=== PATIENT | female | born 1970 | race Caucasian/White ===

== ENCOUNTER 2022-12-18 07:35 | Outpatient (CLI) | payer BC, SELFPAY | END 2022-12-18 07:36 | disposition home or self-care (01) | PROVIDERS: PCP Internal Medicine; Referring Provider Internal Medicine; Visit Provider Internal Medicine | DX: Z00.00 Encounter for general adult medical examination without abnormal findings (principal); E03.9 Hypothyroidism, unspecified; L71.9 Rosacea, unspecified; E66.9 Obesity, unspecified; L50.1 Idiopathic urticaria; K21.9 Gastro-esophageal reflux disease without esophagitis | CPT/HCPCS: 80061; 82306; 82728; 82947; 83520; 83735; 84443; 86336 ==

== ENCOUNTER 2023-01-26 11:27 | Outpatient (CLI) | payer BC, SELFPAY ==
--- NOTE | 2023-01-26 11:30 | CRLHL7_ITS ---
For Patients: As a result of the Century Cures Act, medical imaging exams and procedure reports are released immediately into your electronic medical record. You may view this report before your referring provider. If you have questions, please contact your health care provider. BILATERAL SCREENING MAMMOGRAM WITH COMPUTER-AIDED DETECTION AND TOMOSYNTHESIS TECHNIQUE: CC and MLO views were obtained. These mammographic images have been obtained using full-field digital technique. These mammographic images were interpreted with the benefit of computer-aided detection. Breast Tomosynthesis was used in this interpretation. COMPARISON FILM: 10/14/21, 06/06/20, 01/03/19. FINDINGS: The breasts are almost entirely fatty IMPRESSION: There is no radiographic evidence for malignancy. ASSESSMENT: BI-RADS Category 1: Negative RECOMMENDATION: Routine screening mammogram in 1 year. A lay language report of this examination will be provided to the patient. Rahul Hall M.D. Diagnostic Radiologist [email or web address] LEONIE/Dictated by: Rahul Hall MD @ 01/27/2023 9:00:00 AM (Electronically Signed)
== END 2023-01-26 11:28 | disposition home or self-care (01) ==
LOC: MAMMO 11:28
PROVIDERS: PCP Internal Medicine; Visit Provider Internal Medicine
DX: Z12.31 Encounter for screening mammogram for malignant neoplasm of breast (principal)
CPT/HCPCS: 77063; 77067

== ENCOUNTER 2024-02-05 07:39 | Outpatient (CLI) | payer BC, SELFPAY ==
--- OUTSIDE RECORDS SUMMARY | 2024-02-23 08:18 | XMS_ITS | Encounter Summary ---
Author Organization [employer] Address [address], [place] [address] Care Team Providers Care Transformer Mechanic Name Role Phone Unavailable Primary Care Provider Unavailabl e Reason for Visit * Reason Comments QUESTIONS, GENERAL Encounter Details Date Type Department Care Team (Late st Contact Info) Description 07/24/2023 Telephone [facility] [place] [id number] [place] [phone] [place] [address] [place], [place] [phone] QUESTIONS, GENERAL Social History Tobacco Use Types [...]
--- OUTSIDE RECORDS SUMMARY | 2024-02-23 08:18 | XMS_ITS | Clinical Summary ---
Author Organization [facility] Address [address] [place] [address] Care Team Providers Care Associate Publisher Name Role Phone Unavailable Primary Care Provider Unavailabl e Source Comments You are receiving this document as you are listed as the primary care provider,follow-up provider, or the patient has been referred to you for consultation.This is in compliance with the Medicare and[facility] EHR Incentive Program,which states Providers who transition their patient to another setting of careor provider of care or refers their patient to another provider of care shouldprovide summary care record for each transition of care or referral. [employer]) Allergies No known active allergies Medications Medication [...] (19+ yrs) 08/19/2018,09/22/2012,02/26 Influenza IIV4 (Quadrivalent) 0.5mL (61676) 05/22,08/31/2017 Influenza, Unspecified Formulation 08/04/2016,,07/25/2014 Td 03/26/2005 Tdap 06/05/2009 Social History Tobacco Use Types Packs/Day Years Used Date Smoking Tobacco: Never Smokeless Tobacco: Never Sex and Gender Information Value Date Recorded Sex Assigned at Not on file Gender Identity Not on file Sexual Orientation Not on file Last Filed Vital Signs Vital Sign Reading Time Taken Comments Blood Pressure 128/84 07/28/2019 1:19 PM MINERALOGY PROFESSOR Pulse 90 07/28/2019 1:19 PM MINERALOGY PROFESSOR Temperature 36.3 ??C (97.3 ??F) 05/15/2023 4:37 [...] on patient's age to complete this topic [id number] [facility] [place] [address] Verónica Pleitez Personal/Family Self 1970 [id number] [facility] [place] [address]
--- OUTSIDE RECORDS SUMMARY | 2024-02-23 08:19 | XMS_ITS | Referral Summary ---
Author Organization [facility] Address [address] [place] [address] Care Team Providers Care House Detective Name Role Phone Elsewhere, Pcp Primary Care Provider Unavailabl e Source Comments Patient records contain information from all sites at [facility]. For routine questions regarding patient records, call [phone] during business hours, M-F 8:00 AM - 5:00 PM Central Time. Record requests for emergency care only can be directed to [phone] at any time.[facility] Encounters Date Type Department Care Team Description 01/18/2024 12:45 PM CDT Office Visit Department of Dermatology in [address] [phone] Karie Goodwin M.D. Nevi Multiple (Primary Dx); [...] often do you attend chur ch or samaritan services? More than 4 times per year 06/16/2022 Do you belong to any clubs o r organizations such as jew groups, unions, fraternal or athletic groups, or [...] and heating? Not hard at all 06/16/2022 [facility] [place] of Occupat ional Health - Occupational Stress [...] place to sleep or slept in a fpc (including now)? No 06/16/2022 Nutrition Answer Date [...] Comments Blood Pressure 121/80 10/10/2019 8:28 AM JUNIOR SYSTEMS ENGINEER Pulse 69 10/10/2019 8:28 AM JUNIOR SYSTEMS ENGINEER Temperature 36.9 ??C (98.4 ??F) 08/15/2019 9:54 AM CS T Respiratory Rate 14 08/01/2016 11:5 6 AM JUNIOR SYSTEMS ENGINEER Oxygen Saturation - - Inhaled Oxygen Concentration - - Weight 90.1 kg (198 lb 10.2 oz) 10/10/2019 8:28 AM JUNIOR SYSTEMS ENGINEER Height 165.5 cm (5' 5.16) 10/10/2019 8:28 AM CS T Body Mass Index 32.9 10/10/2019 8:28 AM JUNIOR SYSTEMS ENGINEER Plan of Treatment Upcoming Encounters Date Type Department Care Team (Late st Contact Info) Description 07/25/2024 8:45 AM JUNIOR SYSTEMS ENGINEER Office Visit Department of Dermatology in [address] [phone] Karie Goodwin M.D. [address] [place] [phone] Discharge Disposition: Home or Self Care Procedures Procedure Name Priority Date/Time Associated Diagnosis Comments THYROID FUNCTION CASCADE, S Routine 04/11/2019 3:46 PM CDT Pain Low Back Pain Hip Bilateral HCV RNA DETECT/QUANT Routine 12/11/2015 12:28 PM CDT HIV-1/-2 AG AND AB SCREEN Routine 12/11/2015 12:28 PM CDT from Last 3 Months or Most Recently Relevant to Health Maintenance Results * Thyroid Function Dexter (04/11/2019 3:46 PM CDT) TSH, Sensitive 0.6 0.3 - 4.2 mIU/L 04/11/2019 7:40 PM CDT Blood (Blood, Venous) 04/11/2019 3:46 PM CDT 04/11/2019 7:00 PM CDT Nasir Kidd M.D. LAB BLOOD ADD-ON Performing Organization Address City/State/[facility] de Phone Number [facility] [address] * HIV-1/-2 Ag and Ab Screen (12/11/2015 12:28 PM CDT) [facility] HIV-1/-2 Antibody Negative Negative POWERCHART Comment: Negative result does not rule out HIV infection. If acute HIV infection is suspected in a high-risk individual, submit plasma specimen for HIV-1 RNA quantification test (HIVDQ) and/or HIV-2 DNA/RNA test (FHV2Q). Test Performed by: [place] [id number] Multilith Operator: Julian Clarke II, M.D., Ph.D. Blood 12/11/2015 12:2 8 PM CDT Oli Palencia Jr., M.D. LAB MICROBIOLOG Y - BLOOD ORDERABLES Performing Organization Address [facility] de Phone Number POWERCHART * HCV RNA Detect / Quant (12/11/2015 12:28 PM CDT) [facility] HCV RNA Detect/Quant, S Undetected Undetected INTUML POWERCHART Comment: Result in log IU/mL is Undetected. ADDITIONAL INFORMATION The quantification range of this assay is 15 to 100,000,000 IU/mL (1.18 log to 8.00 log IU/mL). Testing was performed by the CINDY AmpliPrep/CINDY TaqMan HCV Test, version 2.0 ([employer] Test Performed by: [place] [address] Multilith Operator: Julian Clarke II, M.D., Ph.D. Blood 12/11/2015 12:2 8 PM CDT Oli Palencia Jr., M.D. LAB MICROBIOLOG Y - BLOOD ORDERABLES POWERCHART from Last 3 Months or Most Recently Relevant to Health Maintenance Care Teams House Detective Relationship Specialty Start Date End Date Elsewhere, Pcp PCP - General Family Medicine 08/15/19
--- OUTSIDE RECORDS SUMMARY | 2024-02-23 08:19 | XMS_ITS | Encounter Summary ---
Author Organization [facility] Address [address] [place] [address] Care Team Providers Care Agricultural Chemist Name Role Phone Elsewhere, Pcp Primary Care Provider Unavailabl e Encounter Details Date Type Department Care Team (Late st Contact Info) Description 11/10/2016 Historical Ophthalmology [facility] Oli Palencia Jr., M.D. [address] [phone] Social History Tobacco Use Types [...] Mild rosacea CDM Reports - EYEGEN Id: [id number] Status: Fnl documented in this encounter Plan of Treatment Upcoming Encounters Date Type Department Care Team (Late st Contact Info) Description 07/25/2024 8:45 AM BUSINESS INSIGHT AND ANALYTICS MANAGER Office Visit Department of Dermatology in [address] [phone] Karie Goodwin M.D. [address] [place] [phone] Discharge Disposition: Home or Self Care documented as of this encounter Visit Diagnoses Not on filedocumented in this encounter Additional Health Concerns Infection Onset Date Last Indicated Resolved Time COVID19 Pending 02/02/2020 02/02/2020 02/03/2020 3 :15 AM CDT COVID19 Pending 02/06/2020 02/06/2020 02/07/2020 5 :41 PM CDT COVID19 Pending 08/29/2020 08/29/2020 08/30/2020 1 :03 PM BUSINESS INSIGHT AND ANALYTICS MANAGER documented as of this encounter Care Teams Agricultural Chemist Relationship Specialty Start Date End Date Elsewhere, Pcp PCP - General Family Medicine 08/15/19 documented as of this encounter
--- OUTSIDE RECORDS SUMMARY | 2024-02-23 08:19 | XMS_ITS | Encounter Summary ---
Author Organization [facility] Address [address] [place] [address] Care Team Providers Care Health Care Marketing Specialist Name Role Phone Skylar Esparza MD Primary Care Provider [phone] Encounter Details Date Type Department Care Team ([facility] st Contact Info) Description 12/11/2023 Transcribe Orders [...] on filedocumented in this encounter Care Teams Health Care Marketing Specialist Relationship Specialty Start Date End Date Skylar Esparza MD [address] [address] PCP - General Internal Medicine 10/09/20 documented as of this encounter
--- OUTSIDE RECORDS SUMMARY | 2024-02-23 08:19 | XMS_ITS | Encounter Summary ---
Author Organization [facility] Address [address] [place] [address] Care Team Providers Care Guest Service Supervisor Name Role Phone Elsewhere, Pcp Primary Care Provider Unavailabl e Reason for Referral * Outpatient (Routine) - Authorized Specialty Diagnoses / Procedures Referred By Geneva ventura Referred To Contact Dermatology Karie Goodwin M.D. [address] [place] [address] [facility] Referral ID Status Reason Start Date Expiration Date V isits Requested Visits Authorized [id number] Authorized 01/18/2024 07/19/2025 1 1 Scheduling Instructions Recheck scalp pruritus, rosacea and a few nevi in 6 months Reason for Visit * Reason Comments Skin Check * Appointment Request (Routine) - Closed Specialty Diagnoses / Procedures Referred By Contac t Referred To Contact Dermatology Referral ID Status Reason Start Date Expiration Date Visits Re quested Visits Authorized [id number] Closed 09/10/2023 09/09/2024 1 1 Encounter Details Date Type Department Care Team (Late st Contact Info) Description 01/18/2024 12:45 PM CDT Office Visit Department of Dermatology in [address] [phone] Karie Goodwin M.D. [address] [place] [phone] Nevi Multiple (Primary Dx); Keratosis Seborrheic; Pruritus [...] often do you attend chur ch or restorationism services? More than 4 times per year 06/16/2022 Do you belong to any clubs o r organizations such as adventism groups, unions, fraternal or athletic groups, or [...] and heating? Not hard at all 06/16/2022 [facility] [place] of Occupat ional Health - Occupational Stress [...] place to sleep or slept in a penitentiary (including now)? No 06/16/2022 Nutrition Answer Date [...] extremities. My scribe (Rhoda) served as a skeet operator for the entirety of the exam. Examination [...] st Contact Info) Description 07/25/2024 8:45 AM DIAGNOSTICS TECH Office Visit Department of Dermatology in [address] [phone] Karie Goodwin M.D. [address] [place] [phone] Discharge Disposition: Home or Self Care Scheduled Referrals Name Type Priority Associated Diagnoses Order Schedule Dermatology office visit (clinic) Outpatient Referral Routine Expected: 07/19/2024 (Approximate), Expires: 04/18/2025 documented as of this encounter Visit Diagnoses Diagnosis Nevi Multiple- Primary Keratosis Seborrheic Pruritus Scalp Rosacea documented in this encounter Care Teams Guest Service Supervisor Relationship Specialty Start Date End Date Elsewhere, Pcp PCP - General Family Medicine 08/15/19 documented as of this encounter
--- OUTSIDE RECORDS SUMMARY | 2024-02-23 08:19 | XMS_ITS | Referral Summary ---
Author Organization [facility] Address [address] [place] [address] Care Team Providers Care Break Off Worker Name Role Phone Skylar Esparza MD Primary [...] of Treatment Not on file Care Teams Break Off Worker Relationship Specialty Start Date End Date Skylar Esparza MD [facility] [address] [place] [address] PCP - General Internal Medicine 10/09/20
--- OUTSIDE RECORDS SUMMARY | 2024-02-23 08:19 | XMS_ITS ---
Author Organization [facility] Address [address] [place] [address] Care Team Providers Care Linux Programmer Name Role Phone Unavailable Unavailable Unavailable Surgery Details Not on file Complications Check Surgery Details section. Procedure Estimated Blood Loss Check Surgery Details section. Procedure Findings Check Surgery Details section. Procedure Specimens Taken Check Surgery Details section.
--- OUTSIDE RECORDS SUMMARY | 2024-02-23 08:19 | XMS_ITS | Clinical Summary ---
Author Organization [facility] Address [address] [place] [address] Care Team Providers Care Manager Financial Reporting Name Role Phone Elsewhere, Pcp Primary Care Provider Unavailabl e Source Comments Patient records contain information from all sites at [facility]. For routine questions regarding patient records, call [phone] during business hours, M-F 8:00 AM - 5:00 PM Central Time. Record requests for emergency care only can be directed to [phone] at any time.[facility] Allergies Active Allergy Reactions Criticality Noted Date [...] CDT Office Visit Department of Dermatology in [address] [phone] Karie Goodwin M.D. Nevi Multiple [...] How often do you attend chur or latter-day services? More than 4 times per year 06/16/2022 Do you belong to any clubs o r organizations such as orthodoxy groups, unions, fraternal or athletic groups, or [...] and heating? Not hard at all 06/16/2022 [facility] - Occupational Stress Questionnaire Answer Date [...] place to sleep or slept in a residential (including now)? No 06/16/2022 Nutrition Answer Date [...] Comments Blood Pressure 121/80 10/10/2019 8:28 AM GRAPE GROWER Pulse 69 10/10/2019 8:28 AM GRAPE GROWER Temperature 36.9 ??C (98.4 ??F) 08/15/2019 9:54 AM CS T Respiratory Rate 14 08/01/2016 11:5 6 AM GRAPE GROWER Oxygen Saturation - - Inhaled Oxygen Concentration - - Weight 90.1 kg (198 lb 10.2 oz) 10/10/2019 8:28 AM GRAPE GROWER Height 165.5 cm (5' 5.16) 10/10/2019 8:28 AM CS T Body Mass Index 32.9 10/10/2019 8:28 AM GRAPE GROWER Plan of Treatment Upcoming Encounters Date Type Department Care Team (Late st Contact Info) Description 07/25/2024 8:45 AM GRAPE GROWER Office Visit Department of Dermatology in [address] [phone] Karie Goodwin M.D. [address] [place] [phone] Discharge Disposition: Home or Self Care Health [...] to Health Maintenance Results * Thyroid Function [place] (04/11/2019 3:46 PM CDT) TSH, Sensitive 0.6 0.3 - 4.2 mIU/L 04/11/2019 7:40 PM CDT Blood (Blood, Venous) 04/11/2019 3:46 PM CDT 04/11/2019 7:00 PM CDT Nasir Kidd M.D. LAB BLOOD ADD-ON [facility] [address] [place] [address], [facility] * HIV-1/-2 Ag and Ab Screen (12/11/2015 12:28 PM CDT) [facility] HIV-1/-2 Antibody Negative Negative POWERCHART Comment: Negative result does not rule out HIV infection. If acute HIV infection is suspected in a high-risk individual, submit plasma specimen for HIV-1 RNA quantification test (HIVDQ) and/or HIV-2 DNA/RNA test (FHV2Q). Test Performed by: [place] [address] Watershed Tender: Julian Clarke II, M.D., Ph.D. Blood 12/11/2015 12:2 8 PM CDT Oli Palencia Jr., M.D. LAB MICROBIOLOG Y - BLOOD ORDERABLES Performing Organization Address [facility] de Phone Number POWERCHART * HCV RNA Detect / Quant (12/11/2015 12:28 PM CDT) [facility] HCV RNA Detect/Quant, S Undetected Undetected INTUML POWERCHART Comment: Result in log IU/mL is Undetected. ADDITIONAL INFORMATION The quantification range of this assay is 15 to 100,000,000 IU/mL (1.18 log to 8.00 log IU/mL). Testing was performed by the CINDY AmpliPrep/CINDY TaqMan HCV Test, version 2.0 ([employer] Test Performed by: [place] [id number] Watershed Tender: Julian Clarke II, M.D., Ph.D. Blood 12/11/2015 12:2 8 PM CDT Oli Palencia Jr., M.D. LAB MICROBIOLOG Y - BLOOD ORDERABLES Performing Organization Address City/[facility] de Phone Number POWERCHART from Last 3 Months or Most Recently Relevant to Health Maintenance Care Teams Manager Financial Reporting Relationship Specialty Start Date End Date Elsewhere, Pcp PCP - General Family Medicine 08/15/19
--- OUTSIDE RECORDS SUMMARY | 2024-02-23 08:19 | XMS_ITS | Clinical Summary ---
Author Organization [facility] Address [address] [place] [address] Care Team Providers Care Survey Instrument Operator Name Role Phone Skylar Esparza MD Primary [...] age to complete this topic Care Teams Survey Instrument Operator Relationship Specialty Start Date End Date Skylar Esparza MD [facility] [address] [place] [address] PCP - General Internal Medicine 10/09/20
--- OUTSIDE RECORDS SUMMARY | 2024-02-23 08:19 | XMS_ITS | Clinical Summary ---
Author Organization [facility] Address [place], [place] [address] Care Team Providers Care Care Trainer Name Role Phone Pcp, No Primary Care [...] Description 02/05/2024 8:40 AM CDT Office Visit [facility] [address] [place] [address] Fortunato Tapia MD Musculoskeletal Problem (RIGHT Hip/groin [...] DT Respiratory Rate 16 09/02/2022 8:01 AM CASSANDRA ARCHITECT Oxygen Saturation 100% 02/05/2024 8:48 AM CDT Inhaled Oxygen Concentration - - Weight 80 kg (176 lb 6.4 oz) 02/05/2024 8:48 AM CDT Height 165.1 cm (5' 5) 10/27/2022 8:47 AM CASSANDRA ARCHITECT Body Mass Index 29.35 10/27/2022 8:47 AM CASSANDRA ARCHITECT Plan of Treatment Health Maintenance Due Date [...] REFLEX MEASURED LDL Routine 11/07/2010 8:36 AM CASSANDRA ARCHITECT HYPOTHYROIDISM ACQUIRED UNSPEC PRELOAD SUPERVISOR THIN PREP PAP SCREEN IMAGED Routine 01/18/2008 3:26 PM CDT Screening Malignant Neoplasms Cervix XR MAMMO BILAT DIAG FFDM (IA) Timed 06/11/2006 3:07 PM CDT from Last 3 Months or Most Recently Relevant to Health Maintenance Results * COLONOSCOPY SCREENING (01/13/2022 12:00 AM CDT) Shaun Joseph MD GI PROCEDURE ORD * LIPID PANEL W REFLEX MEASURED LDL (11/07/2010 8:36 AM CASSANDRA ARCHITECT) CHOLESTEROL,TOTAL 169 110 - 199 mg/dL [facility] TRIGLYCERIDES 114 40 - 149 mg/dL [facility] HDL CHOLESTEROL 48 >40 mg/dL [facility] CHOL/HDL RATIO 3.52 <4.51 [facility] LDL CHOLESTEROL 98 <131 mg/dL [facility] PATIENT STATUS Fasting [facility] Blood specimen (specimen) BLOOD SPECIMEN / Unknown 11/07/2010 8:36 AM CASSANDRA ARCHITECT 11/07/2010 8:35 AM CASSANDRA ARCHITECT Karthik Mccann MD CHEMISTRY [facility] INTERNAL ZIP [address] [place], [place] [id number] * PRELOAD SUPERVISOR THIN PREP PAP SCREEN IMAGED (01/18/2008 3:26 PM CDT) CYTOLOGY ??CYTOPATHOLOGY REPORT ??[facility] ?? Status: Final Report ? [id number] ?? CLINICAL INFORMATION ?LMP ? : 01-11-08 ?Previous Pap Date ? : 12-11-06 ?Previous PAP Dx ? : Negative for intraepithelial lesion or ?malignancy. ?Previous [place]cadia/bx date : None ?Previous Colposcopy/Bx: None ?Hormone Usage ? : None ?Menstrual Status ?: Regular Periods ?Appearance of Cervix ??: WNL ?[place]/Bx done today ?: No ?HPV Request ? [...] 01/18/08 ?? ACCESSIONED: 01/18/08 ?? SIGNED: 01/20/08 [facility] Cervical (Cervical) 01/18/2008 3:26 PM CDT 01/18/2008 3:25 PM CDT Larisa Contreras MD PATHOLOGY/CYTOLO GY [facility] [place]NAL ZIP [address] [address] * BC DX FFD NOHEMI TARA (06/11/2006 [...] 10:21 AM 12/03/2008 1:31 PM Care Teams Care Trainer Relationship Specialty Start Date End Date Pcp, No . PCP - General 05/29/20
== END 2024-02-05 07:40 | disposition home or self-care (01) ==
LOC: NFLDREF 02-23 08:16
PROVIDERS: PCP Internal Medicine; Referring Provider Internal Medicine; Visit Provider Internal Medicine
DX: D64.9 Anemia, unspecified (principal); E03.9 Hypothyroidism, unspecified; D39.10 Neoplasm of uncertain behavior of unspecified ovary; E66.9 Obesity, unspecified
CPT/HCPCS: 80061; 80076; 82306; 82728; 82947; 83520; 83735; 84439; 84443; 86336

== ENCOUNTER 2024-02-19 12:59 | Outpatient (CLI) | payer BC, SELFPAY ==
--- NOTE | 2024-02-19 13:00 | CRLHL7_ITS ---
For Patients: As a result of the Century Cures Act, medical imaging exams and procedure reports are released immediately into your electronic medical record. You may view this report before your referring provider. If you have questions, please contact your health care provider. BILATERAL SCREENING MAMMOGRAM WITH COMPUTER-AIDED DETECTION AND TOMOSYNTHESIS TECHNIQUE: CC and MLO views were obtained. These mammographic images have been obtained using full-field digital technique. These mammographic images were interpreted with the benefit of computer-aided detection. Breast Tomosynthesis was used in this interpretation. COMPARISON FILM: 01/26/23, 08/24/22, 06/06/20. FINDINGS: There are scattered areas of fibroglandular density. IMPRESSION: There is no radiographic evidence for malignancy. ASSESSMENT: BI-RADS Category 1: Negative RECOMMENDATION: Routine screening mammogram in 1 year. A lay language report of this examination will be provided to the patient. Rahul Hall M.D. Diagnostic Radiologist [email or web address] SP/Dictated by: Rahul Hall MD @ 02/22/2024 10:42:00 AM (Electronically Signed)
--- OUTSIDE RECORDS SUMMARY | 2024-02-19 13:02 | XMS_ITS | Encounter Summary ---
Author Organization [facility] Address [address] [place] [address] Care Team Providers Care Product Communications Manager Name Role Phone Elsewhere, Pcp Primary Care Provider Unavailabl e Encounter Details Date Type Department Care Team (Late st Contact Info) Description 11/10/2016 Historical Ophthalmology [facility] Oli Palencia Jr., M.D. [address] [phone] Social History Tobacco Use Types Packs/Day Years Used Date Smoking Tobacco: Never Sex and Gender Information Value Date Recorded Sex Assigned at Female 06/16/2022 2:22 PM CDT Gender Identity Female 03/01/2018 4:06 PM CDT Sexual Orientation Straight 03/01/2018 4: 06 PM CDT documented as of this encounter Progress Notes * Oli Palencia M.D. - 11/10/2016 2:51 PM CST Eye General CHIEF COMPLAINT CE HISTORY OF PRESENT ILLNESS by the end of the day her eyes are red and goopy, wonders if she may have ocular roascea. eyes dry.rarely wears glasses, she's not used to them and gets a little dizzy with them, but she is startingto have troubles seeing up close. has a mole on her left upper eyelid she wants you to look at. IMPRESSION / REPORT / PLAN #1 Mild rosacea Dry eyes If sx don't improve, then fill the +1.25 Consider decreasing Claritin DIAGNOSIS #1 Mild rosacea CDM Reports - EYEGEN Id: [id number] Status: Fnl documented in this encounter Plan of Treatment Upcoming Encounters Date Type Department Care Team (Late st Contact Info) Description 07/25/2024 8:45 AM QUALITY ASSURANCE INTERN Office Visit Department of Dermatology in [address] [phone] Karie Goodwin M.D. [address] [place] [address] Discharge Disposition: Home or Self Care documented as of this encounter Visit Diagnoses Not on filedocumented in this encounter Additional Health Concerns Infection Onset Date Last Indicated Resolved Time COVID19 Pending 02/02/2020 02/02/2020 02/03/2020 3 :15 AM CDT COVID19 Pending 02/06/2020 02/06/2020 02/07/2020 5 :41 PM CDT COVID19 Pending 08/29/2020 08/29/2020 08/30/2020 1 :03 PM QUALITY ASSURANCE INTERN documented as of this encounter Care Teams Product Communications Manager Relationship Specialty Start Date End Date Elsewhere, Pcp PCP - General Family Medicine 08/15/19 documented as of this encounter
--- OUTSIDE RECORDS SUMMARY | 2024-02-19 13:02 | XMS_ITS | Referral Summary ---
Author Organization [facility] Address [address] [place] [address] Care Team Providers Care Candlemaker Name Role Phone Elsewhere, Pcp Primary Care Provider Unavailabl e Source Comments Patient records contain information from all sites at [facility]. For routine questions regarding patient records, call [phone] during business hours, M-F 8:00 AM - 5:00 PM Central Time. Record requests for emergency care only can be directed to [phone] at any time.[facility] Encounters Date Type Department Care Team Description 01/18/2024 12:45 PM CDT Office Visit Department of Dermatology in [address] [phone] Karie Goodwin M.D. Nevi Multiple (Primary Dx); Keratosis Seborrheic; Pruritus Scalp; Rosacea Discharge Disposition: Home or Self Care from Last 3 Months Allergies Active Allergy Reactions Criticality Noted Date Comments Adhesive Tape-Silicones Rash Medium 12/01/2008 Dye Rash Medium 06/23/2022 Paraphenylene diamine found in hair dye Formaldehyde Rash Low 07/30/2020 Nickel Itching 06/16/2022 Red itchy ears Suture (Absorbable) Other (see comments) 2015 Vicryl sutures Medications Medication Sig Dispensed Refills Start Date End Date Status clonazePAM (KlonoPIN) 0.5 mg tablet Take 1 tablet by mouth at bedtime as needed. sleep 08/31/2012 Active pantoprazole (PROTONIX) 40 mg EC tablet Take 1 tablet by mouth daily. 40 mg one tab PO QD 03/16/2014 Active levothyroxine (SYNTHROID, LEVOTHROID) 125 mcg tablet Take 1 tablet by mouth daily. 125 mcg tablet Thursday & Thursday 112 mcg tablet Thursday-Thursday03/03/2012 Active SYNTHROID 112 mcg tablet Take 112 mcg by mouth as directed. Takes Thursday thru Thursday 3 09/06/2018 Active metroNIDAZOLE (METROLOTION) 0.75 % lotion Apply 1 application topically 2 (two) times a day. 60 mL 3 07/21/2019 Active EPINEPHrine (EPIPEN) 0.3 mg/0.3 mL injection syringe Inject 0.3 mL (0.3 mg total) intramuscularly as needed (anaphylaxis). 1 kit 3 08/15/2019 Active cetirizine (ZyrTEC) 10 mg tablet Take 1 tablet (10 mg total) by mouth at bedtime 90 tablet 09/17/2020 Active carboxymethylcell ulose (REFRESH TEARS) 0.5 % ophthalmic solution 1 drop as needed for dry eyes. Taking off and on Active Ventolin HFA 90 mcg/actuation inhaler 06/20/2022 Active metroNIDAZOLE (METROLOTION) 0.75 % lotion Apply to involved areas on face 1 to 2 times a day as needed. 60 mL 2 01/18/2024 Active fluocinonide (LIDEX) 0.05 % external solution Apply sparingly to involved areas on scalp 1-2 times daily for 1 week at a time as needed. 60 mL 2 01/18/2024 Active Active Problems Problem Noted Date Diagnosed Date Pain Joint 05/02/2019 Pain Low Back Unspecified 03/01/2018 Pain Neck 03/01/2018 Spondylosis Cervical Without Myelopathy 03/01/20 18 Immunizations Name Administration Dates Next Due HepA Adult 09/22/2012,02/27/2012 Influenza, Unspecified 08/04/2016,06/25/2015,12/2013,06/08/2013 Tdap 06/05/2009 Social History Tobacco Use Types Packs/Day Years Used Date Smoking Tobacco: Never Smokeless Tobacco: Never Tobacco Cessation:Counseling Given: Not Answered Alcohol Use Standard Drinks/Week Comments Yes 3 (1 standard drink = 0.6 oz pur e alcohol) Humiliation, Afraid, Rape, and Kick questionnair e Answer Date Recorded Within the last year, have y ou been afraid of your partner or ex-partner? No 06/16/2022 Within the last year, have y ou been humiliated or emotionally abused in other ways by your partner or ex-partner? No Within the last year, have y ou been kicked, hit, slapped, or otherwise physically hurt by your partner or ex-partner? No 06/16/2022 Within the last year, have y ou been raped or forced to have any kind of sexual activity by your partner or ex-partner? No 06/16/2022 Social Connection and Isolat ion Panel [NHANES] Answer Date Recorded In a typical week, how many times do you talk on the phone with family, friends, or neighbors? More than three times a week 06/16/2022 How often do you get togethe r with friends or relatives? Once a week 06/16/2022 How often do you attend chur ch or islam services? More than 4 times per year 06/16/2022 Do you belong to any clubs o r organizations such as rastafarian groups, unions, fraternal or athletic groups, or school groups? Yes 06/16/2022 How often do you attend meet ings of the clubs or organizations you belong to? More than 4 times per year 06/16/2022 Are you , , di vorced, , never , or living with a partner? 06/16/2022 AUDIT-C Answer Date Recorded Q1: How often do you have a drink containing alc ohol? 2-4 times a month 06/16/2022 Q2: How many drinks containi ng alcohol do you have on a typical day when you are drinking? 1 or 2 06/16/2022 Q3: How often do you have si x or more drinks on one occasion? Never 06/16/2022 Overall Financial Resource Strain (CARDIA) Answe r Date Recorded How hard is it for you to pa y for the very basics like food, housing, medical care, and heating? Not hard at all 06/16/2022 [facility] of Occupat ional Health - Occupational Stress Questionnaire Answer Date Recorded Do you feel stress - tense, restless, nervous, or anxious, or unable to sleep at night because your mind is troubled all the time - these days? Only a little 06/16/2022 Exercise Vital Sign Answer Date Recorde d On average, how many days pe r week do you engage in moderate to strenuous exercise (like a brisk walk)? 6 days 06/16/2022 On average, how many minutes do you engage in exercise at this level? 20 min 06/16/2022 Hunger Vital Sign Answer Date Recorded Within the past 12 months, y ou worried that your food would run out before you got the money to buy more. Never true 06/16/20 Within the past 12 months, t he food you bought just didn't last and you didn't have money to get more. Never true 06/16/2022 PRAPARE - Transportation Answer Date Re corded In the past 12 months, has l ack of transportation kept you from medical appointments or from getting medications? No 05/23 In the past 12 months, has l ack of transportation kept you from meetings, work, or from getting things needed for daily living? No 06/16/2022 Housing Stability Vital Sign Answer Agustín e Recorded In the last 12 months, was t here a time when you were not able to pay the mortgage or rent on time? No 06/16/2022 In the last 12 months, how many places have you lived? 1 06/16/2022 In the last 12 months, was t here a time when you did not have a steady place to sleep or slept in a alf (including now)? No 06/16/2022 Nutrition Answer Date Recorded On average, how many serving s of fruits and vegetables do you eat per day (serving size is equal to 1 cup or approximately the size of a tennis ball)? 2-3 06/16/2022 Dental Answer Date Recorded Dental: Regular Dentist Yes 06/16/20 Employment Answer Date Recorded Employment status Employed and actively working without restrictions 06/16/2022 Education Answer Date Recorded What is the highest level of school you have completed or the highest degree you have received? Professional school degree (e.g., , DDS, DVM, FERNANDA) 04/11/2019 Sex and Gender Information Value Date Recorded Sex Assigned at Female 06/16/2022 2:22 PM CDT Gender Identity Female 03/01/2018 4:06 PM CDT Sexual Orientation Straight 03/01/2018 4: 06 PM CDT Last Filed Vital Signs Vital Sign Reading Time Taken Comments Blood Pressure 121/80 10/10/2019 8:28 AM [facility] Pulse 69 10/10/2019 8:28 AM [facility] Temperature 36.9 ??C (98.4 ??F) 08/15/2019 9:54 AM CS T Respiratory Rate 14 08/01/2016 11:5 6 AM [facility] Oxygen Saturation - - Inhaled Oxygen Concentration - - Weight 90.1 kg (198 lb 10.2 oz) 10/10/2019 8:28 AM [facility] Height 165.5 cm (5' 5.16) 10/10/2019 8:28 AM CS T Body Mass Index 32.9 10/10/2019 8:28 AM [facility] Plan of Treatment Upcoming Encounters Date Type Department Care Team (Late st Contact Info) Description 07/25/2024 8:45 AM [facility] Office Visit Department of Dermatology in [address] [phone] Karie Goodwin M.D. [address] [place] [phone] Discharge Disposition: Home or Self Care Procedures Procedure Name Priority Date/Time Associated Diagnosis Comments THYROID FUNCTION CASCADE, S Routine 04/11/2019 3:46 PM CDT Pain Low Back Pain Hip Bilateral HCV RNA DETECT/QUANT Routine 12/11/2015 12:28 PM CDT HIV-1/-2 AG AND AB SCREEN Routine 12/11/2015 12:28 PM CDT from Last 3 Months or Most Recently Relevant to Health Maintenance Results * Thyroid Function [place] (04/11/2019 3:46 PM CDT) TSH, Sensitive 0.6 0.3 - 4.2 mIU/L 04/11/2019 7:40 PM CDT Blood (Blood, Venous) 04/11/2019 3:46 PM CDT 04/11/2019 7:00 PM CDT Nasir Kidd M.D. LAB BLOOD ADD-ON Performing Organization Address City/State/[facility] de Phone Number [facility] [address] * HIV-1/-2 Ag and Ab Screen (12/11/2015 12:28 PM CDT) [facility] HIV-1/-2 Antibody Negative Negative POWERCHART Comment: Negative result does not rule out HIV infection. If acute HIV infection is suspected in a high-risk individual, submit plasma specimen for HIV-1 RNA quantification test (HIVDQ) and/or HIV-2 DNA/RNA test (FHV2Q). Test Performed by: [place] [address] Hydro Sprayer Operator: Julian Clarke II, M.D., Ph.D. Blood 12/11/2015 12:2 8 PM CDT Oli Palencia Jr., M.D. LAB MICROBIOLOG Y - BLOOD ORDERABLES Performing Organization Address [facility] de Phone Number POWERCHART * HCV RNA Detect / Quant (12/11/2015 12:28 PM CDT) [facility] HCV RNA Detect/Quant, S Undetected Undetected INTUML POWERCHART Comment: Result in log IU/mL is Undetected. ADDITIONAL INFORMATION The quantification range of this assay is 15 to 100,000,000 IU/mL (1.18 log to 8.00 log IU/mL). Testing was performed by the CINDY AmpliPrep/CINDY TaqMan HCV Test, version 2.0 ([employer] Test Performed by: [place] [address] Hydro Sprayer Operator: Julian Clarke II, M.D., Ph.D. Blood 12/11/2015 12:2 8 PM CDT Oli Palencia Jr., M.D. LAB MICROBIOLOG Y - BLOOD ORDERABLES POWERCHART from Last 3 Months or Most Recently Relevant to Health Maintenance Care Teams Candlemaker Relationship Specialty Start Date End Date Elsewhere, Pcp PCP - General Family Medicine 08/15/19
--- OUTSIDE RECORDS SUMMARY | 2024-02-19 13:02 | XMS_ITS | Encounter Summary ---
Author Organization [facility] Address [address] [place] [address] Care Team Providers Care Mobile Home Set Up Person Name Role Phone Elsewhere, Pcp Primary Care Provider Unavailabl e Reason for Referral * Outpatient (Routine) - Authorized Specialty Diagnoses / Procedures Referred By Geneva ventura Referred To Contact Dermatology Karie Goodwin M.D. [address] [place] [address] [facility] Referral ID Status Reason Start Date Expiration Date V isits Requested Visits Authorized [id number] Authorized 01/18/2024 07/19/2025 1 1 Scheduling Instructions Recheck scalp pruritus, rosacea and a few nevi in 6 months Reason for Visit * Reason Comments Skin Check * Appointment Request (Routine) - Closed Specialty Diagnoses / Procedures Referred By Contac t Referred To Contact Dermatology Referral ID Status Reason Start Date Expiration Date Visits Re quested Visits Authorized [id number] Closed 09/10/2023 09/09/2024 1 1 Encounter Details Date Type Department Care Team (Late st Contact Info) Description 01/18/2024 12:45 PM CDT Office Visit Department of Dermatology in [address] [phone] Karie Goodwin M.D. [address] [place] [phone] Nevi Multiple (Primary Dx); Keratosis Seborrheic; Pruritus Scalp; Rosacea Discharge Disposition: Home or Self Care Social History Tobacco Use Types Packs/Day Years [...] often do you attend chur ch or anglican services? More than 4 times per year 06/16/2022 Do you belong to any clubs o r organizations such as presybeterian groups, unions, fraternal or athletic groups, or [...] and heating? Not hard at all 06/16/2022 [facility] of Occupat ional Health - Occupational Stress [...] place to sleep or slept in a intermediate (including now)? No 06/16/2022 Nutrition Answer Date [...] as of this encounter Progress Notes * Karie Goodwin M.D. 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 The patient was last seen by me in Dermatology clinic on 10/26/23. seen by me in Dermatology clinic on 06/23/22. She denies a personal history of skin cancer or family history for melanoma. 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 She uses sunscreen. She would particularly like us to evaluatea few lesions involving the forehead and chin today. MEDICAL HISTORY Negative for skin cancer Right lower cheek: History of severely atypical nevus, status post excision in 2012 by an outside general surgeon FAMILY HISTORY Negative for melanoma Basal cell carcinoma in father OBJECTIVE PHYSICAL EXAMINATION General: Awake, alert, in no acute distress, and with appropriate affect. Eyes: No scleral injection or icterus. No eyelid abnormalities. Lymph: No lower extremity edema. Skin: I have examined the scalp, face, neck, chest, abdomen, back, bilateral upper extremities, andbilateral lower extremities. My scribe (Rhoda) served as a patient service specialist for the entirety of the exam. Examination of the right lower cheek reveals no evidence for recurrence of severely atypical nevus. Examination of the face, trunk and extremities reveals multiple benign-appearing nevi, lentigines and seborrheic keratoses. Examination of the mid central scalp reveals some mild erythema and inflammation. No papules or pustules. Examination of the eyebrows are unremarkable. Examination of the lower eyelashes reveals focal area of sparser eyelashes. Examination of the glabella reveals two dermal nevi. The more central of these is slightly irritated. Examination of the cheeks reveals some minimal telangiectasia. no papules or pustules. Examination of the central chin reveals a 2 x 2 mm benign appearing dermal nevus. Examination of the left mid medial cheek reveals a 4.5 x 4 mm slightly light- brown papule with a dermal component, likely representing a dermal nevus. Examination today reveals no suspicious lesions for skin cancer. ASSESSMENT / PLAN #1 Mid central scalp: Localized pruritus and mild inflammation I recommend she apply Lidex solution to the affected area 1-2 times a day for one week at a time asneeded. She understands and is in agreement with this plan. Follow up in 6 months for a recheck of the scalp. #2 Cheeks: Rosacea, under very good control I recommend she continue Metrolotion twice daily as needed. I recommend avoidance of aggravating factors for rosacea which include heat, stress, alcohol, and spicy foods. She understands and is in agreement with this plan. I have refilled the Metrolotion today per patient request. Follow up as needed. #3 Face, trunk and extremities: Multiple nevi and lentigines The ABCDE criteria for melanoma was reviewed with the patient. None of the patient's nevi reach theclinical threshold for biopsy. I recommend continued sun protection, self-skin examinations, and observation. Should any of the patient's nevi change in size, color, texture, or shape or develop symptoms such as itching or bleeding, I recommend an immediate return visit for reassessment. #4 Face, trunk and extremities: Seborrheic keratosis The benign nature of the skin lesion(s) was discussed with the patient. No treatment is required. Irecommend continued observation. Should this lesion change in size, color, texture, or shape or develop symptoms such as itching or bleeding, I recommend an immediate return visit for reassessment. #5 Right lower cheek: History of severely atypical nevus, status post excision in 2013 by an outside general surgeon, no recurrence No clinical evidence of local recurrence today. Recommended monthly self-skin examinations to evaluate for new, changing, symptomatic, or otherwise worrisome lesions. Signs and symptoms of skin cancer discussed. Photoprotection was recommended. Return to Dermatology in 12 months for a full skin exam or immediately if any new or changing lesions are noted. PATIENT EDUCATION: Ready to learn. No apparent learning barriers were identified. Learning preferences include listening. Explained diagnosis and treatment plan; patient/guardian of patient expressed understanding of the content. By signing my name below, I, Rhoda Almonte, attest that this documentation has been prepared underthe direction and in the presence of Karie Goodwin M.D. Electronically Signed: donaldo Cunningham. 01/18/2024. 12:56 PM CDT. I, Karie Goodwin M.D., personally performed the services described in this documentation. All medical record entries made by the scribe were at my direction and in my presence. I have reviewed the chart and discharge instructions (if applicable) and agree that the record reflects my personal performance and is accurate and complete. Karie Goodwin M.D. Scribed for Karie Goodwin M.D. by Rhoda Almonte, on 01/18/2024, 1:23 PM CDT. documented in this encounter Plan of Treatment Upcoming Encounters Date Type Department Care Team (Late st Contact Info) Description 07/25/2024 8:45 AM [facility]TACT [facility] SPECIALIST Office Visit Department of Dermatology in [address] [phone] Karie Goodwin M.D. [address] [place] [phone] Discharge Disposition: Home or Self Care Scheduled Referrals Name Type Priority Associated Diagnoses Order Schedule Dermatology office visit (clinic) Outpatient Referral Routine Expected: 07/19/2024 (Approximate), Expires: 04/18/2025 documented as of this encounter Visit Diagnoses Diagnosis Nevi Multiple- Primary Keratosis Seborrheic Pruritus Scalp Rosacea documented in this encounter Care Teams Mobile Home Set Up Person Relationship Specialty Start Date End Date Elsewhere, Pcp PCP - General Family Medicine 08/15/19 documented as of this encounter
--- OUTSIDE RECORDS SUMMARY | 2024-02-19 13:02 | XMS_ITS | Referral Summary ---
Author Organization [facility] Address [address] [place] [address] Care Team Providers Care Windows Security Engineer Name Role Phone Skylar Esparza MD Primary Care Provider Encounters Date Type Department Care Team Description 12/11/2023 Transcribe Orders GENERIC EXTERNAL DATA DEPARTMENT Provider, Generic External Data from Last 3 Months Allergies Active Allergy Reactions Criticality Noted Date Comments Adhesive Tape Rash Low 12/01/2008 Medications Medication Sig Dispensed Refills Start Date End Date Status carboxymethylcellulos e (REFRESH PLUS) 0.5 % SOLN ophthalmic solution 1 drop Active cetirizine (ZYRTEC) 10 MG tablet 2 times daily 09/17/2020 Active clonazePAM (KLONOPIN) 0.5 MG tablet as needed 05/14/2021 Active EPINEPHrine (ANY BX GENERIC EQUIV) 0.3 MG/0.3ML injection 2-pack Inject 0.3 mg into the muscle 08/15/2019 Active famotidine (PEPCID) 20 MG tablet TAKE 1/2 TABLET BY MOUTH 2 TIMES DAILY. 08/01/2020 Active levothyroxine (SYNTHROID/LEVOTHROID ) 125 MCG tablet Take 125 mcg by mouth Weekends only 04/18/2020 Active SYNTHROID 112 MCG tablet During the week 05/14/2021 Active pantoprazole (PROTONIX) 40 MG EC tablet Active rizatriptan (MAXALT) 10 MG tabletIndications:Fran vincenzo with aura and without status migrainosus, not intractable Take 1 tablet (10 mg) by mouth at onset of headache for migraine May repeat in 2 hours. Max 3 tablets/24 hours. 9 tablet 11 05/20/2021 Active Active Problems Problem Noted Date Diagnosed Date Headache 05/20/2021 Immunizations Name Administration Dates Next Due COVID-19 MONOVALENT 12+ (Pfizer) 10/30/2020,09/21 Social History Tobacco Use Types Packs/Day Years Used Date Smoking Tobacco: Never Smokeless Tobacco: Never Alcohol Use Standard Drinks/Week Comments Yes 0 (1 standard drink = 0.6 oz pur e alcohol) 2-3 drinks per week Adolescent Education Answer Date Record ed Getting School Help Needed Not on file 06/13 Sex and Gender Information Value Date Recorded Sex Assigned at Female 05/17/2021 8:27 AM CDT Gender Identity Female 05/17/2021 8:27 AM CDT Sexual Orientation Straight 05/17/2021 8: 27 AM CDT Last Filed Vital Signs Vital Sign Reading Time Taken Comments Blood Pressure 150/90 05/20/2021 11:37 AM CDT Pulse 86 05/20/2021 11:37 AM CDT Temperature - - Respiratory Rate - - Oxygen Saturation - - Inhaled Oxygen Concentration - - Weight 95.7 kg (211 lb) 05/20/2021 11:37 AM CDT Height 165.1 cm (5' 5) 05/20/2021 11:37 AM CDT Body Mass Index 35.11 05/20/2021 11:37 AM CDT Plan of Treatment Not on file Care Teams Windows Security Engineer Relationship Specialty Start Date End Date Skylar Esparza MD [facility] [address] [place] [address] PCP - General Internal Medicine 10/09/20
--- OUTSIDE RECORDS SUMMARY | 2024-02-19 13:02 | XMS_ITS | Continuity of Care Document ---
Author Organization [facility] Address [address] [address] [place] [address] Phone Care Team Providers Care Thread Spooler Name Role Phone Unavailable Unavailable Unavailable Procedures Procedure Date Subsqt Hosp-da E&m Minr Compl 9 Advance Directives Directive Yes / No Effective Date File Name No Information Encounters Encounter Description Practice Location Reason(s) For Visit Diagnoses Date Provider Providers Copied on Encounter Subsqt Hosp-da E&m Minr Compl [facility], [address] [address], [place], [place], [id number], tel:[phone] [facility] No Information No Information Referring Provider: Dane Arita MD F[address], [place], [address]. tel:[phone] Family History Family Member Type Diagnosis Age At Onset No Information Payers Payer name Insurance type Covered constitution party ID Authorliama juan(s) [facility] [id number] Social History Type Description Quantity Date Captured Comments Sex Female Smoking Status No Information Chief Complaint And Reason For Visit No Information Reason For Referral Reason For Referral No Information History Of Present Illness Encounter Date Complaint History Of Prese nt Illness No Information Functional Status Date Functional Assessmen t No Information Instructions Date Instruction Additional Infor mation No Information Assessments Type Assessment Date No Information Patient Care Teams Name Effective Dates (start - stop) Status Members No Information
--- OUTSIDE RECORDS SUMMARY | 2024-02-19 13:02 | XMS_ITS ---
Author Organization [facility] Address [address] [place] [address] Care Team Providers Care Analytical Consultant Name Role Phone Unavailable Unavailable Unavailable Surgery Details Not on file Complications Check Surgery Details section. Procedure Estimated Blood Loss Check Surgery Details section. Procedure Findings Check Surgery Details section. Procedure Specimens Taken Check Surgery Details section.
--- OUTSIDE RECORDS SUMMARY | 2024-02-19 13:02 | XMS_ITS | Clinical Summary ---
Author Organization [facility] Address [address] [place] [address] Care Team Providers Care Real Estate Economist Name Role Phone Skylar Esparza MD Primary Care Provider Allergies Active Allergy Reactions Criticality Noted Date [...] Problem Noted Date Diagnosed Date Headache 05/20/2021 Encounters Date Type Department Care Team Description 12/11/2023 Transcribe Orders GENERIC EXTERNAL DATA DEPARTMENT Provider, Generic External Data from Last 3 Months Immunizations Name Administration Dates Next Due COVID-19 MONOVALENT 12+ (Pfizer) 10/30/2020,09/21 Family History Medical History Relation Comments Migraines Maternal Great-Grandmother Migraines Mother Relation Status Comments Maternal Great-Grandmother Alive Mother Social History Tobacco Use Types Packs/Day Years [...] 05/20/2021 11:37 AM CDT Plan of Treatment Health Maintenance Due Date Last Done Comments ADVANCE CARE PLANNING 1970 ANNUAL REVIEW OF HM ORDERS 1970 CT COLONOGRAPHY 1970 FIT 1970 FLEX SIG 1970 GLUCOSE 1970 MAMMO SCREENING 1970 TSH W/FREE T4 REFLEX 1970 YEARLY PREVENTIVE VISIT 1970 sDNA (Cologuard) 1970 COLONOSCOPY 1980 COLORECTAL CANCER SCREENING 1980 HIV SCREENING 1985 HEPATITIS C SCREENING 1988 HEPATITIS B IMMUNIZATION (1 of 3 - 19+ 3-dose series) 1989 PAP 1991 LIPID 2010 ZOSTER IMMUNIZATION (1 of 2) 2020 COVID-19 Vaccine (3 - season) 2023 10/30/2020, 10/09/2020 PHQ-2 (once per calendar year) 2023 INFLUENZA VACCINE (Season Ended) 2024 08/06/2020, 06/07/2018, 08/31/2017, Additional history exists DTAP/TDAP/TD IMMUNIZATION (3 - Td or Tdap) 08/30/2028 08/30/2018, 06/05/2009, 03/26/2005 HPV IMMUNIZATION Aged Out No longer e ligible based on patient's age to complete this topic IPV IMMUNIZATION Aged Out No longer e ligible based on patient's age to complete this topic MENINGITIS IMMUNIZATION Aged Out No l onger eligible based on patient's age to complete this topic Pneumococcal Vaccine: Pediatrics (0 to 5 Years) and At-Risk Patients (6 to 64 Years) Aged Out No longer eligible based on patient's age to complete this topic RSV MONOCLONAL ANTIBODY Aged Out No l onger eligible based on patient's age to complete this topic Care Teams Real Estate Economist Relationship Specialty Start Date End Date Skylar Esparza MD [facility] [address] [place] [address] PCP - General Internal Medicine 10/09/20
--- OUTSIDE RECORDS SUMMARY | 2024-02-19 13:02 | XMS_ITS | Encounter Summary ---
Author Organization [facility] Address [address], [place] [address] Care Team Providers Care Lime Burner Name Role Phone Unavailable Primary Care Provider Unavailabl e Reason for Visit * Reason Comments QUESTIONS, GENERAL Encounter Details Date Type Department Care Team (Late st Contact Info) Description 07/24/2023 Telephone [facility] [place] [id number] [place] [phone] [place] [address] [place], [place] [phone] QUESTIONS, GENERAL Social History Tobacco Use Types Packs/Day Years Used Date Smoking Tobacco: Never Smokeless Tobacco: Never Sex and Gender Information Value Date Recorded Sex Assigned at Not on file Gender Identity Not on file Sexual Orientation Not on file documented as of this encounter Nursing Notes * Lisa Carmichael - 07/24/2023 9:34 AM CDT Please detail the reason for your call: pt has recently experienced vertigo and is trying to set upan appt soon. Earliest available consult was 08/21, pt is asking if there is anyway to squeeze in either with a shorter appt time as the condition had been discussed at a previous visit. Is it okay to leave a detailed message on your voicemail? Yes *The therapist will get back to you within three business days. If your call is related to symptomsand you have concerns please contact your Primary Care or referring provider. documented in this encounter Plan of Treatment Not on file documented as of this encounter Visit Diagnoses Not on filedocumented in this encounter
--- OUTSIDE RECORDS SUMMARY | 2024-02-19 13:02 | XMS_ITS | Clinical Summary ---
Author Organization [facility] Address [address] [place] [address] Care Team Providers Care Psychology Technician Name Role Phone Elsewhere, Pcp Primary Care Provider Unavailabl e Source Comments Patient records contain information from all sites at [facility]. For routine questions regarding patient records, call [phone] during business hours, M-F 8:00 AM - 5:00 PM Central Time. Record requests for emergency care only can be directed to [phone] at any time.[facility] Allergies Active Allergy Reactions Criticality Noted Date [...] 03/01/2018 Spondylosis Cervical Without Myelopathy 03/01/20 18 Encounters Date Type Department Care Team Description 01/18/2024 12:45 PM CDT Office Visit Department of Dermatology in [address] [phone] Karie Goodwin M.D. Nevi Multiple (Primary Dx); Keratosis Seborrheic; Pruritus Scalp; Rosacea Discharge Disposition: Home or Self Care from Last 3 Months Immunizations Name Administration Dates Next Due HepA Adult 09/22/2012,02/27/2012 Influenza, Unspecified 08/04/2016,06/25/2015,12/2013,06/08/2013 Tdap 06/05/2009 Family History Medical History Relation Name Comments Alcohol abuse Father cheli Basal cell carcinoma Father cheli Colon polyps Father cheli Hyperlipidemia Father cheli Prostate cancer Father cheli Skin cancer Father cheli BCC & Sebaceous adenoma Alcohol abuse Maternal Grandfather Abelardo Alzhei mers Diabetes Maternal Grandfather Abelardo Anxiety disorder Maternal Grandmother Aruna Arthritis Maternal Grandmother Aruna Glaucoma Maternal Grandmother Aruna Anxiety disorder Mother matt Glaucoma Mother matt Migraines Mother matt Skin cancer Mother matt SCC Squamous cell carcinoma Mother matt Macular degeneration Paternal Grandmother Relation Name Status Comments Father cheli Maternal Grandfather Abelardo Maternal Grandmother Aruna Mother matt Paternal Grandmother Social History Tobacco Use Types Packs/Day Years [...] 06/16/2022 How often do you attend chur or rastafari services? More than 4 times per year 06/16/2022 Do you belong to any clubs o r organizations such as jain groups, unions, fraternal or athletic groups, or [...] and heating? Not hard at all 06/16/2022 [facility] Occupational Stress Questionnaire Answer Date Recorded [...] place to sleep or slept in a long-term (including now)? No 06/16/2022 Nutrition Answer Date [...] Blood Pressure 121/80 10/10/2019 8:28 AM COOK FROZEN DESSERT Pulse 69 10/10/2019 8:28 AM COOK FROZEN DESSERT Temperature 36.9 ??C (98.4 ??F) 08/15/2019 9:54 AM CS T Respiratory Rate 14 08/01/2016 11:5 6 AM COOK FROZEN DESSERT Oxygen Saturation - - Inhaled Oxygen Concentration - - Weight 90.1 kg (198 lb 10.2 oz) 10/10/2019 8:28 AM COOK FROZEN DESSERT Height 165.5 cm (5' 5.16) 10/10/2019 8:28 AM CS T Body Mass Index 32.9 10/10/2019 8:28 AM COOK FROZEN DESSERT Plan of Treatment Upcoming Encounters Date Type Department Care Team (Late st Contact Info) Description 07/25/2024 8:45 AM COOK FROZEN DESSERT Office Visit Department of Dermatology in [address] [phone] Karie Goodwin M.D. [address] [place] [phone] Discharge Disposition: Home or Self Care Health Maintenance Due Date Last Done Comments CT Colonography 1970 Cologuard 1970 FIT 1970 Fasting Glucose for Diabetes Screening 1970 Lipid (Cholesterol) Screening 1970 Mammogram 1970 Hepatitis B Vaccines (1 of 3 - 19+ 3-dose series) 1989 Thyroid Stimulating Hormone (TSH) test for thyroid function 04/11/2020 04/11/2019 Zoster Vaccines (1 of 2) 2020 COVID-19 Vaccine (3 - 2022- season) 2023 10/30/2020, 10/09/2020 Influenza Vaccine (#1) 2023 , 08/06/2020, 06/07/2018, Additional history exists Depression Screening (Annual PHQ-2) 09/21/2023 DTaP,Tdap,and Td Vaccines (3 - Td or Tdap) 08/30/2028 08/30/2018, 06/05/2009, 06/05/2009, Additional history exists Colonoscopy 01/14/2032 01/13/2022 Colorectal Cancer Screening 01/14/2032 HIV Screening Completed 12/11/2015 Hepatitis C Screening Completed 12/11/2015 Hepatitis A Vaccines Completed 08/19/2018, 09/22/2012, 02/27/2012 Pneumococcal vaccine (0-64 years) Aged Out No longer eligible based on patient's age to complete this topic Procedures Procedure Name Priority Date/Time Associated Diagnosis Comments THYROID FUNCTION CASCADE, S Routine 04/11/2019 3:46 PM CDT Pain Low Back Pain Hip Bilateral HCV RNA DETECT/QUANT Routine 12/11/2015 12:28 PM CDT HIV-1/-2 AG AND AB SCREEN Routine 12/11/2015 12:28 PM CDT from Last 3 Months or Most Recently Relevant to Health Maintenance Results * Thyroid Function [place] (04/11/2019 3:46 PM CDT) TSH, Sensitive 0.6 0.3 - 4.2 mIU/L 04/11/2019 7:40 PM CDT Blood (Blood, Venous) 04/11/2019 3:46 PM CDT 04/11/2019 7:00 PM CDT Nasir Kidd M.D. LAB BLOOD ADD-ON [facility] [address] [place] [address], [facility] * HIV-1/-2 Ag and Ab Screen (12/11/2015 12:28 PM CDT) [facility] HIV-1/-2 Antibody Negative Negative POWERCHART Comment: Negative result does not rule out HIV infection. If acute HIV infection is suspected in a high-risk individual, submit plasma specimen for HIV-1 RNA quantification test (HIVDQ) and/or HIV-2 DNA/RNA test (FHV2Q). Test Performed by: [place] [address] [place] Mason: Julian Clarke II, M.D., Ph.D. Blood 12/11/2015 12:2 8 PM CDT Oli Palencia Jr., M.D. LAB MICROBIOLOG Y - BLOOD ORDERABLES Performing Organization Address [facility] de Phone Number POWERCHART * HCV RNA Detect / Quant (12/11/2015 12:28 PM CDT) [facility] HCV RNA Detect/Quant, S Undetected Undetected INTUML POWERCHART Comment: Result in log IU/mL is Undetected. ADDITIONAL INFORMATION The quantification range of this assay is 15 to 100,000,000 IU/mL (1.18 log to 8.00 log IU/mL). Testing was performed by the CINDY AmpliPrep/CINDY TaqMan HCV Test, version 2.0 ([employer] Test Performed by: [place] [id number] [place] Mason: Julian Clarke II, M.D., Ph.D. Blood 12/11/2015 12:2 8 PM CDT Oli Palencia Jr., M.D. LAB MICROBIOLOG Y - BLOOD ORDERABLES Performing Organization Address City/[facility] de Phone Number POWERCHART from Last 3 Months or Most Recently Relevant to Health Maintenance Care Teams Psychology Technician Relationship Specialty Start Date End Date Elsewhere, Pcp PCP - General Family Medicine 08/15/19
--- OUTSIDE RECORDS SUMMARY | 2024-02-19 13:02 | XMS_ITS | Encounter Summary ---
Author Organization [facility] Address [address] [place] [address] Care Team Providers Care Electronic Sales And Service Technician Name Role Phone Skylar Esparza MD Primary Care Provider Encounter Details Date Type Department Care Team ([facility] st Contact Info) Description 12/11/2023 Transcribe Orders GENERIC EXTERNAL DATA DEPARTMENT Provider, Generic External Data Social History Tobacco Use Types Packs/Day Years [...] Orientation Straight 05/17/2021 8: 27 AM CDT documented as of this encounter Plan of Treatment Not on file documented as of this encounter Visit Diagnoses Not on filedocumented in this encounter Care Teams Electronic Sales And Service Technician Relationship Specialty Start Date End Date Skylar Esparza MD [address] [address] PCP - General Internal Medicine 10/09/20 documented as of this encounter
--- OUTSIDE RECORDS SUMMARY | 2024-02-19 13:02 | XMS_ITS | Clinical Summary ---
Author Organization [facility] Address [address] [place] [address] Care Team Providers Care Specialist Wound Care Name Role Phone Unavailable Primary Care Provider Unavailabl e Source Comments You are receiving this document as you are listed as the primary care provider,follow-up provider, or the patient has been referred to you for consultation.This is in compliance with the Medicare and[facility] EHR Incentive Program,which states Providers who transition their patient to another setting of careor provider of care or refers their patient to another provider of care shouldprovide summary care record for each transition of care or referral. [employer] Allergies No known active allergies Medications Medication Sig Dispensed Refills Start Date End Date Status cholecalciferol (VITAMIND3) 25 MCG (1000 UT) capsule Take 1 Capsule by mouth daily. 07/04/2010 Active clonazePAM (KLONOPIN) 0.5 MG tablet Take 1 Tablet by mouth at bedtime as needed. 08/31/2012 Active levothyroxine (SYNTHROID) 125 MCG tablet Take 1 Tablet by mouth. 03/03/2012 Active levothyroxine (SYNTHROID) 112 MCG tablet Take 1 Tablet (112 mcg) by mouth. 09/06/2018 Active metroNIDAZOLE (METROLOTION) 0.75 % lotion Apply 1 Application topically daily. 11/23/2008 Active pantoprazole (PROTONIX) 40 MG tablet Take 1 Tablet (40 mg) by mouth daily. 03/16/2014 Active cetirizine (ZYRTEC) 10 MG tablet Take 1 Tablet (10 mg) by mouth daily. 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 07/28/2019 Fibromyalgia 07/28/2019 Raynaud's disease without gangrene 07/28/2019 Multiple joint pain 05/02/2019 Spondylosis of cervical spine without myelopathy 03/01/2018 Displacement of cervical int ervertebral disc without myelopathy 02/17/2008 Esophageal reflux 09/28/2007 Overview: EGD 09/2015 normal, fundic gland polyps Vitamin D deficiency 07/20/2007 Hypothyroidism 06/08/2007 Allergic rhinitis 12/11/2006 Immunizations Name Administration Dates Next Due Flu Vac (3+ yrs) 06/08/2013 Flu Vac Preserv Free (3+yrs) 07/14/2012,07/15/20 11 HepA Adult (19+ yrs) 08/19/2018,09/22/2012,02/26 Influenza IIV4 (Quadrivalent) 0.5mL (82219) 05/22,08/31/2017 Influenza, Unspecified Formulation 08/04/2016,,07/25/2014 Td 03/26/2005 Tdap 06/05/2009 Social History Tobacco Use Types Packs/Day Years Used Date Smoking Tobacco: Never Smokeless Tobacco: Never Sex and Gender Information Value Date Recorded Sex Assigned at Not on file Gender Identity Not on file Sexual Orientation Not on file Last Filed Vital Signs Vital Sign Reading Time Taken Comments Blood Pressure 128/84 07/28/2019 1:19 PM IRON CUTTER Pulse 90 07/28/2019 1:19 PM IRON CUTTER Temperature 36.3 ??C (97.3 ??F) 05/15/2023 4:37 PM CD T Respiratory Rate - - Oxygen Saturation - - Inhaled Oxygen Concentration - - Weight 95.3 kg (210 lb) 05/12/2023 5:39 PM CDT Height 165.1 cm (5' 5) 05/12/2023 5:39 PM CDT Body Mass Index 34.95 05/12/2023 5:39 PM CDT Plan of Treatment Health Maintenance Due Date Last Done Comments Cervical Cancer Screening Due 1970 Colon Cancer Screening Plan Due 1970 Diabetes Screening- (based on age and BMI) 1970 Hep C Screening (Preventive Services) 1970 Mammogram 1970 HIV Screening (Preventive Services) 1986 Adult Preventive Visit 1988 HepB (1) 1989 Cholesterol 2015 Zoster/Shingles (1 of 2) 2020 COVID-19 Vaccine (3 - season) 2023 10/30/2020, 10/09/2020 Influenza (Season Ended) 05/22/202407/08/2 021, 08/06/2020, 08/06/2020, Additional history exists DTaP/Tdap/Td (3 - Tdap) 08/30/2028 08/30/20 18, 06/05/2009, 03/26/2005 HepA Completed 08/19/2018, 10/2012, 02/27/2012 Hib Aged Out No longer eligi ble based on patient's age to complete this topic IPV (Polio) Aged Out No longer eligi ble based on patient's age to complete this topic MCV4 Aged Out No longer eligi ble based on patient's age to complete this topic Pneumococcal Aged Out No longer eligi ble based on patient's age to complete this topic [id number] [facility] [place] [address] Verónica Pleitez Personal/Family Self 1970 [id number] [facility] [place] [address]
--- OUTSIDE RECORDS SUMMARY | 2024-02-19 13:03 | XMS_ITS | Clinical Summary ---
Author Organization [email or web address] [facility] Address [place], [place] [address] Care Team Providers Care Service Electrician Name Role Phone Pcp, No Primary Care Provider Unavailabl e Allergies Active Allergy Reactions Criticality Noted Date Comments Adhesive Tape Rash 12/01/2008 Formaldehyde Rash Low 07/30/2020 Latex *Unknown 02/05/2024 Nickel Itching 06/16/2022 Red itchy ears Polyglactin 370 Other - Describe In Comment Field 09/19/2016 Vicryl sutures Unlisted Allergen (Include Detail In Comments) Rash Low 12/01/2008 Paraphenamine (ingrediant in hair dye) Medications Medication Sig Dispensed Refills Start Date End Date Status METROLOTION 0.75 % apply a thin layer by topical route 2 times per day to the affected area(s) in the evening 3 mos 3 11/23/2008 Active cholecalciferol (VITAMIN D) 1,000 unit capsuleIndications:U nspecified hypothyroidism Take 2 capsules by mouth once daily. One cap daily 0 07/04/2010 Active pantoprazole (PROTONIX) 40 mg delayed-release tablet 2 02/21/2018 Active clonazePAM (KLONOPIN) 0.5 mg tablet Take 1 tablet by mouth. 08/31/2012 Active EPINEPHrine (EPIPEN) 0.3 mg/0.3 mL injection 0 01/18/2018 Active SYNTHROID 112 mcg tablet 0 12/22/2018 Active cetirizine (ZYRTEC) 10 mg tablet Take 10 mg by mouth once daily. BID Active SYNTHROID 125 mcg tablet TAKE 1 TABLET BY MOUTH 2 TIMES WEEKLY 04/18/2020 Active fluocinonide 0.05 TOPICAL (LIDEX) 0.05 % external solution Apply sparingly to involved areas on scalp twice daily for up to 1 week at a time 08/13/2020 Active famotidine (PEPCID) 10 mg tablet Take 1 tablet by mouth 2 times daily. 0 06/04/2020 02/05/2024 Discontinue d(*Patient states no longer taking) carboxymethylcellulo se 0.5% 0.5 % drop ophthalmic drops 1 Drop. 02/05/2024 Disconti nue d(*Patient states no longer taking) dextran 70-hypromellose ophthalmic (ARTIFICIAL TEARS; TEARS NATURALE II) ophthalmic solution 1 Drop. 02/05/2024 Disco ntinue d(*Patient states no longer taking) rizatriptan (MAXALT) 10 mg tablet Take 1 tablet by mouth at onset of headache for migraine May repeat in 2 hours. Max 3 tablets/24 hours. 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 Raynaud's disease without gangrene 07/28/2019 Fibromyalgia 07/28/2019 Spondylosis of cervical spine without myelopathy 03/01/2018 Routine adult health maintenance 10/09/2015 Overview: Colonoscopy 09/2015 normal repeat in 10 years Adjustment reaction with physical symptoms 06/12 Pain in joint, shoulder region 06/12/2011 Vertigo 10/23/2009 Peritoneal adhesion 12/01/2008 Displacement of cervical int ervertebral disc without myelopathy 02/17/2008 Cervicalgia 11/12/2007 Backache, unspecified 11/12/2007 Esophageal reflux 09/28/2007 Overview: EGD 09/2015 normal, fundic gland polyps uterine adenomyosis 07/20/2007 Unspecified vitamin D deficiency 07/20/2007 Iron deficiency anemia secondary to blood loss ( chronic) 07/20/2007 Unspecified hypothyroidism 06/08/2007 Allergic rhinitis, cause unspecified 12/11/2006 Resolved Problems Problem Noted Date Diagnosed Date Resolved Date Uterine fibroid 12/01/2008 01/25/2009 Premenopausal menorrhagia 12/01/2008 Dysmenorrhea 12/01/2008 01/25/2009 Enlarged uterus 12/01/2008 01/25/2009 Polyp of corpus uteri 12/11/20062008 Encounters Date Type Department Care Team Description 02/05/2024 8:40 AM CDT Office Visit [facility] [address] [place] [address] Fortunato Tapia MD Musculoskeletal Problem (RIGHT Hip/groin pain x 2 month's ) 02/05/2024 Travel from Last 3 Months Immunizations Name Administration Dates Next Due Hepatitis A (Adult) 08/19/2018,09/22/2012,2011 Influenza RIV4 (Age 18+ Year s) PRESERV FREE 07/08/2021,08/06/2020 Influenza Virus, Unspecified 08/06/2020, 08/04/2016,06/25/2015,2013,06/08/2013,08/05/2011 Influenza, IIV3 (Age 6-35 mos) 07/14/2012,2010 Influenza, IIV3 (Age >=3 years) 06/08/2013 Influenza, IIV4 06/07/2018,08/31/2017 Td (Age >=7 Years) 03/21/2005 Td, Preservative Free (age > = 7 Years) 08/30/2018,06/05/2009 Tdap 06/05/2009 Tuberculin (PPD) 02/13/2009 Family History Medical History Relation Name Comments Allergies Daughter 2 Cancer-prostate Father GI Disease Father stomache/reflux Hyperlipidemia Father Hypertension Father Diabetes Maternal Grandfather Psychiatric illness Maternal Grandfather Dementia-Alzheimer's Osteoporosis Maternal Grandmother Psychiatric illness Maternal Grandmother anxiety, bipolar?/Frontal Dementia Other Mother Atypical Ductal hyperplasia/Migraines Cancer Paternal Grandfather Bladder Other Paternal Grandfather Blood c lots Cancer-breast Paternal Grandmother pagets disease Heart Disease Paternal Grandmother Asthma Son 2 Relation Name Status Comments Daughter 1 Alive Daughter 2 Father Alive Maternal Grandfather Maternal Grandmother Mother Alive Paternal Grandfather Paternal Grandmother Son 1 Alive Son 2 Social History Tobacco Use Types Packs/Day Years Used Date Smoking Tobacco: Never Smokeless Tobacco: Never Tobacco Cessation:Counseling Given: Yes Alcohol Use Standard Drinks/Week Comments Yes 0 (1 standard drink = 0.6 oz pur e alcohol) occas; 1 drink a week PHQ-2 Answer Date Recorded PHQ-2 Score 0 11/21/2018 Social Connections Answer Date Recorded Frequency of Communication with Friends and Fami ly 0 02/05/2024 Financial Resource Strain Answer Date R ecorded Difficulty of Paying Living Expenses 3 02/05/2024 Difficulty of Paying Living Expenses Not on file 02/05/2024 Food Insecurity Answer Date Recorded Worried About Running Out of Food in the Last Ye ar 1 02/05/2024 Transportation Needs Answer Date Record ed Lack of Transportation (Medical) 1 02/05/2024 Housing Stability Answer Date Recorded Unable to Pay for Housing in the Last Year 1 02/05/2024 Sex and Gender Information Value Date Recorded Sex Assigned at Not on file Gender Identity Not on file Sexual Orientation Not on file Obstetrics History Para Term AB IAB SAB Ectopic Multiple Livin g Live Births 2 0 0 0 0 0 0 0 0 2 2 Date Outcome GA Total Labor Labor/2nd/3rd Weight Sex Delivery Anes PTL Isabella A1 A5 Name Cl in 09/27 3.37 kg (7 lb 7 oz) F Vag [place] ng 07/29 40w 0d M Vag [place] ng Last Filed Vital Signs Vital Sign Reading Time Taken Comments Blood Pressure 105/75 02/05/2024 8:48 AM CDT Pulse 82 02/05/2024 8:48 AM CDT Temperature 37.1 ??C (98.7 ??F) 06/19/2011 10:14 AM C DT Respiratory Rate 16 09/02/2022 8:01 AM OPTICAL STORE MANAGER Oxygen Saturation 100% 02/05/2024 8:48 AM CDT Inhaled Oxygen Concentration - - Weight 80 kg (176 lb 6.4 oz) 02/05/2024 8:48 AM CDT Height 165.1 cm (5' 5) 10/27/2022 8:47 AM OPTICAL STORE MANAGER Body Mass Index 29.35 10/27/2022 8:47 AM OPTICAL STORE MANAGER Plan of Treatment Health Maintenance Due Date Last Done Comments Pneumococcal series for age 6-64 (1 of 2 - PCV) 1976 HIV for age 15-65 1985 Hepatitis C screening for ag e 18-79 1988 Zoster (shingles) series for age 50+ (1 of 2) 1989 Pap test for age 21-65 01/17/2011 8, 12/11/2006, 10/07/2005, Additional history exists Lipids for age 45-75 2015 11/07/2010, 10/25/19 10 Mammogram for age 45-75 2015 06/11/2006 COVID-19 vaccine series (3 - Pfizer risk series) 11/27/2020 10/30/2020, 10/09/2020 Depression screening for age 12+ 06/24/2022 06/24/2021, 06/24/2021, 06/04/2020, Additional history exists BMI (ht and wt on same day) for age 18+ 10/27/2023 10/27/2022, 06/24/2021, 01/10/2019, Additional history exists Influenza for age 50-64 05/22/2024 07/08/20 21, 08/06/2020, 08/06/2020, Additional history exists Tetanus booster 08/30/2028 08/30/2018, 05/22, 06/05/2009, Additional history exists Colonoscopy through age 75 01/14/203201/13, 01/13/2022, 10/08/2015, Additional history exists Tdap Completed 06/05/2009 Procedures Procedure Name Priority Date/Time Associated Diagnosis Comments COLONOSCOPY SCREENING Routine 01/13/2022 12:00 AM CDT Encounter for screening colonoscopy LIPID PANEL W REFLEX MEASURED LDL Routine 11/07/2010 8:36 AM OPTICAL STORE MANAGER HYPOTHYROIDISM ACQUIRED UNSPEC PLUMBER PIPE FITTING THIN PREP PAP SCREEN IMAGED Routine 01/18/2008 3:26 PM CDT Screening Malignant Neoplasms Cervix XR MAMMO BILAT DIAG FFDM (IA) Timed 06/11/2006 3:07 PM CDT from Last 3 Months or Most Recently Relevant to Health Maintenance Results * COLONOSCOPY SCREENING (01/13/2022 12:00 AM CDT) Shaun Joseph MD GI PROCEDURE ORD * LIPID PANEL W REFLEX MEASURED LDL (11/07/2010 8:36 AM OPTICAL STORE MANAGER) CHOLESTEROL,TOTAL 169 110 - 199 mg/dL [facility] TRIGLYCERIDES 114 40 - 149 mg/dL [facility] HDL CHOLESTEROL 48 >40 mg/dL [facility] CHOL/HDL RATIO 3.[address] [facility] LDL CHOLESTEROL 98 <131 mg/dL [facility] PATIENT STATUS Fasting [facility] Blood specimen (specimen) BLOOD SPECIMEN / Unknown 11/07/2010 8:36 AM OPTICAL STORE MANAGER 11/07/2010 8:35 AM OPTICAL STORE MANAGER Karthik Mccann MD CHEMISTRY [facility] INTERNAL ZIP [address] [place], [place] [id number] * PLUMBER PIPE FITTING THIN PREP PAP SCREEN IMAGED (01/18/2008 3:26 PM CDT) CYTOLOGY ??CYTOPATHOLOGY REPORT ??[facility] ?? Status: Final Report ? [id number] ?? CLINICAL INFORMATION ?LMP ? : 01-11-08 ?Previous Pap Date ? : 12-11-06 ?Previous PAP Dx ? : Negative for intraepithelial lesion or ?malignancy. ?Previous Concrete/bx date : None ?Previous Colposcopy/Bx: None ?Hormone Usage ? : None ?Menstrual Status ?: Regular Periods ?Appearance of Cervix ??: WNL ?Concrete/Bx done today ?: No ?HPV Request ? : Reflex HPV test if PAP Dx ASCUS ?? SPECIMEN SOURCE ?: Cervical/vaginal ThinPrep Vial, screening ?? SPECIMEN ADEQUACY ?: Satisfactory for evaluation Endocervical ?component present. ? INTERPRETATION/RES ULT: ?Negative for intraepithelial lesion or malignancy. ? Cytology 1st Screener : ??am ?? Signed by: ? am ?? This specimen was screened by the FDA approved ThinPrep Imaging ?? System and manually reviewed. ?? NOTE: The Pap test is a screening technique, not a diagnostic ?? procedure. It is used primarily to screen for squamous cancers and ?? precursor lesions. Published studies have shown that it is subject to ?? both false negative and false positive results. The pap test should ?? not be used as the sole means to diagnose or exclude pre-malignant and ?? malignant lesions. ?? COLLECTED: 01/18/08 ?? ACCESSIONED: 01/18/08 ?? SIGNED: 01/20/08 [facility] Cervical (Cervical) 01/18/2008 3:26 PM CDT 01/18/2008 3:25 PM CDT Larisa Contreras MD PATHOLOGY/CYTOLO GY [facility] INTERNAL ZIP [address] [address] * BC DX FFD NOHEMI TARA (06/11/2006 3:07 PM CDT) Anatomical Region Laterality Modality BREASTS, Breast Left, Breast Right Bilateral Mammography 06/11/2006 2:46 PM CDT Narrative 06/15/2006 9:32 AM CDT 06/11/06 BILATERAL DIAGNOSTIC FULL-FIELD DIGITAL MAMMOGRAPHY (W/CAD) BILATERAL BREAST ULTRASOUND CLINICAL HISTORY: ??BILATERAL LUMPS. TECHNIQUE: ??FULL-FIELD DIGITAL MAMMOGRAPHY WITH COMPUTER-AIDED DETECTION. ??BILATERAL BREAST ULTRASOUND PERFORMED. REPORT: BILATERAL DIAGNOSTIC MAMMOGRAM: ??BILATERAL MAMMOGRAM NEGATIVE. NO EVIDENCE FOR MALIGNANCY. BILATERAL BREAST ULTRASOUND: ??NEGATIVE. ??NO EVIDENCE FOR MASS. THE BREASTS ARE COMPLETELY FATTY ON MAMMOGRAPHY, GOOD FOR VISUALIZATION. ASSESSMENT: ??ACR CATEGORY 1: ??NEGATIVE. Larisa Contreras MD MAMMO from Last 3 Months or Most Recently Relevant to Health Maintenance Advance Directives * Full Code (Latest Code Status on File) Date Activated Date Inactivated Comments 12/01/2008 10:21 AM 12/03/2008 1:31 PM Care Teams Service Electrician Relationship Specialty Start Date End Date Pcp, No . PCP - General 05/29/20
== END 2024-02-19 13:00 | disposition home or self-care (01) ==
LOC: MAMMO 12:59
PROVIDERS: PCP Internal Medicine; Visit Provider Internal Medicine
DX: Z12.31 Encounter for screening mammogram for malignant neoplasm of breast (principal)
CPT/HCPCS: 77063; 77067

== ENCOUNTER 2024-04-12 14:23 | Outpatient (CLI) | payer BC, SELFPAY ==
--- OUTSIDE RECORDS SUMMARY | 2024-04-13 10:58 | XMS_ITS | Clinical Summary ---
Author Organization [facility] Address [address] [place] [address] Care Team Providers Care Solar Water Heater Installer Name Role Phone Unavailable Primary Care Provider Unavailabl e Source Comments You are receiving this document as you are listed as the primary care provider,follow-up provider, or the patient has been referred to you for consultation.This is in compliance with the Medicare and[facility] Cent[facility]aid EHR Incentive Program,which states Providers who transition their patient to another setting of careor provider of care or refers their patient to another provider of care shouldprovide summary care record for each transition of care or referral. [facility] Allergies No known active allergies Medications Medication [...] deficiency 07/20/2007 Hypothyroidism 06/08/2007 Allergic rhinitis 12/11/2006 Encounters Date Type Department Care Team Description 03/31/2024 11:45 AM CDT Office Visit [facility] [address] [address] Sweta Stringer PT Dizziness (Primary Dx) 03/10/2024 E-Visit [facility] [address] [address] Mychart, Generic Provider from Last 3 Months Immunizations Name Administration Dates Next Due Flu Vac (3+ yrs) 06/08/2013 Flu Vac Preserv Free (3+yrs) 07/14/2012,07/15/20 11 HepA Adult (19+ yrs) 08/19/2018,09/22/2012,02/26 Influenza IIV4 (Quadrivalent) 0.5mL (84581) 05/22,08/31/2017 Influenza, Unspecified Formulation 08/04/2016,,07/25/2014 Td 03/26/2005 Tdap 06/05/2009 Social History Tobacco Use Types Packs/Day Years Used Date Smoking Tobacco: Never Smokeless Tobacco: Never Sex and Gender Information Value Date Recorded Sex Assigned at Not on file Gender Identity Not on file Sexual Orientation Not on file Last Filed Vital Signs Vital Sign Reading Time Taken Comments Blood Pressure 128/84 07/28/2019 1:19 PM SEED CLEANER Pulse 90 07/28/2019 1:19 PM SEED CLEANER Temperature 36.3 ??C (97.3 ??F) 05/15/2023 4:37 [...] 1970 Hep C Screening (Preventive Services) 1970 HIV Screening (Preventive Services) 1986 Adult Preventive Visit 1988 HepB (1) 1989 Mammogram 06/11/2007 06/11/2006 Cholesterol 2015 Zoster/Shingles (1 of 2) 2020 COVID-19 Vaccine (3 - season) 2023 10/30/2020, 10/09/2020 Influenza (#1) 2024 07/08/2021, 07/22, 06/07/2018, Additional history exists DTaP/Tdap/Td (3 - Tdap) 08/30/2028 08/30/20, 06/05/2009, 03/26/2005 HepA Completed 08/19/2018, 10/2012, 02/27/2012 [...] on patient's age to complete this topic [id number] [facility] [place] [address] Verónica Pleitez Personal/Family Self 1970 [id number] [facility] [place] [address]
--- OUTSIDE RECORDS SUMMARY | 2024-04-13 10:59 | XMS_ITS | Encounter Summary ---
Author Organization [facility] Address [address] [address] Care Team Providers Care Personnel Manager Name Role Phone Unavailable Primary Care Provider Unavailabl e Encounter Details Date Type Department Care Team (Late st Contact Info) Description 03/10/2024 E-Visit [facility] [address] [id number] Dejan, [place] [address] Social History Tobacco Use Types Packs/Day Years Used Date Smoking Tobacco: Never Smokeless Tobacco: Never Sex and Gender Information Value Date Recorded Sex Assigned at Not on file Gender Identity Not on file Sexual Orientation Not on file documented as of this encounter Plan of Treatment Not on file documented as of this encounter Visit Diagnoses Not on filedocumented in this encounter
--- OUTSIDE RECORDS SUMMARY | 2024-04-13 10:59 | XMS_ITS | Encounter Summary ---
Author Organization [facility] Address [address] [place] [address] Care Team Providers Care Electronic Controls Repairer Supervisor Name Role Phone Skylar Esparza MD Primary Care Provider [phone] Encounter Details Date Type Department Care Team ([facility] st Contact Info) Description 12/11/2023 [...] filedocumented in this encounter Care Teams Electronic Controls Repairer Supervisor Relationship Specialty Start Date End Date Skylar Esparza MD [address] [address] PCP - General Internal Medicine 10/09/20 documented as of this encounter
--- OUTSIDE RECORDS SUMMARY | 2024-04-13 10:59 | XMS_ITS ---
Author Organization [facility] Address [address] [place] [address] Care Team Providers Care Ecological Modeler Name Role Phone Unavailable Unavailable Unavailable Surgery Details Not on file Complications Check Surgery Details section. Procedure Estimated Blood Loss Check Surgery Details section. Procedure Findings Check Surgery Details section. Procedure Specimens Taken Check Surgery Details section.
--- OUTSIDE RECORDS SUMMARY | 2024-04-13 10:59 | XMS_ITS | Encounter Summary ---
Author Organization [employer] Address [address], [place] [address] Care Team Providers Care Handyperson Name Role Phone Unavailable Primary Care Provider Unavailabl e Reason for Visit * Reason Comments Vestibular * Therapies (Routine) - Closed Specialty Diagnoses / Procedures Referred By Contac t Referred To Contact Physical Therapist / Physical Therapy Diagnoses Vertigo Procedures [place] [address] [place] [address] Referral ID Status Reason Start Date Expiration Date Visits Re quested Visits Authorized [id number] Closed 03/31/2024 06/30/2025 1 1 Encounter Details Date Type Department Care Team (Late st Contact Info) Description 03/31/2024 11:45 AM CDT Office Visit [facility] [place] [address] [place] [address] [place] [address] [place] [address] Dizziness (Primary Dx) Social History Tobacco Use Types Packs/Day Years Used Date Smoking Tobacco: Never Smokeless Tobacco: Never Sex and Gender Information Value Date Recorded Sex Assigned at Not on file Gender Identity Not on file Sexual Orientation Not on file documented as of this encounter Progress Notes * Sweta Stringer, PT - 03/31/2024 11:45 AM CDT Physical Therapy - Vestibular Evaluation/Plan of Care Initial Certification Period: 03/31/2024 to 06/29/24 Referring Provider: Patient Self-Referral Visit Diagnosis: 1. Dizziness Patient verbalized there are aware of being seen direct access and that insurance may or may not cover provided services. Patient consented to evaluation and treatment. Precautions: Fibromyalgia Orders: Direct access Onset/Referral Date: Onset 8-10 weeks ago SUBJECTIVE Reason for Visit: Reports that she has felt really unsteady recently. Has noticed issues standing on a dock, doing down stairs, veering when walking, bumping into doorframes when walking. History of BPPV vertigo, however no issues this time with rolling in bed like before. A few symptoms with looking up just today. Feels nausea, lightheaded, unsteady. Has ringing in her ears since early January, follows up with ENT in April. Reports she had a virus 2 months ago, but not correlated to the onset of these symptoms. History of Falls: None Patient Therapy Goals: eliminate dizziness Past Medical History: Patient has a current medication list which includes the following prescription(s): cetirizine, cholecalciferol, clonazepam, levothyroxine, levothyroxine, metronidazole, and pantoprazole Patient Active Problem List Diagnosis Allergic rhinitis Displacement of cervical intervertebral disc without myelopathy Esophageal reflux Multiple joint pain Spondylosis of cervical spine without myelopathy Hypothyroidism (HRC) Vitamin D deficiency Jae's disease (HRC) Flushing Fibromyalgia Raynaud's disease without gangrene (HRC) Recently Experienced (Red Flags): Denies fever, chills, night sweats, unrelenting night pain, unexplained weight loss, bowel/bladder changes, saddle sensation changes Cardiac Red Flags: nausea Previous Treatment: physical therapy Benefited from previous treatment: yes Pain Details: Neck stiffness Symptoms: floating, disequilibrium (unsteady), and nausea Ear Symptoms: tinnitus increased over the last month Increases Symptoms: quick head turns and unsteady surfaces, stairs Decreases Symptoms: move slowly Work/Leisure/Sport: 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 Patient was alert and oriented. Oculomotor examination: Spontaneous Nystagmus: Normal Eye Movement Range: Normal Vergence: Normal. Smooth Pursuit Eye Movement: normal Saccadic Eye Movement: Normal Function HINTS: (3/3 positive; + LR 6.19) Negative Head Impulse/Thrust Test: No corrective saccades (= negative for peripheral etiology / positive forHINTS test) Gaze Holding Nystagmus: No nystagmus with <30 degree gaze (= negative for HINTS test) Test of Vertical Skew: No eye movement during testing (= negative for HINTS test) Vestibular ocular reflex (VOR) Cancellation: dizziness and feels 'sea sick' Vestibular ocular reflex (VOR) Observed: normal Static and Dynamic Visual Acuity (at 2 hz. 3 lines or more = positive): Not tested CROM: WNL Test Performed with Fixation Blocked: Spontaneous Nystagmus: Normal Gaze holding Nystagmus: Normal Positional Tests: Test performed with fixation blocked (frenzel goggles on): Right hallpike: negative for dizziness and negative nystagmus Left hallpike: negative for dizziness and negative nystagmus Right roll test: negative for dizziness and negative nystagmus Left roll test: negative for dizziness and negative nystagmus Balance and Gait Tests: Single Leg Stance: WNL seconds Sharpened Rhomberg, eyes open: seconds Modified Clinical Test for Sensory Interaction of Balance (mCTSIB): Condition 1 (Feet together, eyes open): WNL Conditon 2 (Feet together, eyes closed): WNL Condition 5 (Feet together, eyes open, on foam): WNL Condition 6 (Feet together, eyes closed, on foam): mild increase in sway, able to maintain Gait with horizontal head movements: Path deviation - very mild, unsteady Gait with vertical head movements: Path deviation - very mild, unsteady Gait with quick turns: Normal No outcome data collected. Clinical Examination: Low complexity: Addressed 1-2 elements from body structures and functions (see above), and/or functional limitations as noted below. Today's Intervention: Physical Therapy Evaluation was completed and the patient was educated on the condition, planned therapy intervention and expectations from treatment. Patient was educated regarding diagnosis, appropriate anatomy and pathology and how it impacts their current functional status. Reviewed negative exam findings today. Neuromuscular re-education x 8 minutes: - Discussed balance exercises for home: Use of airex pad - head turns, double/ single leg stance Walking with head turns No handout provided Recommended follow up with ENT Timed Code Treatment Minutes: 8 Total Treatment Minutes: 35 ASSESSMENT Therapist Impression/Summary: Patient is a 53 year old presenting to physical therapy with dizziness and unsteadiness. Upon evaluation today, negative positional testing and grossly negative oculomotor exam. Mild reproduction of symptoms with VOR cancellation. Balance testing was WNL. At this time recommend patient follow up with ENT as scheduled. PT Clinical Presentation: Low Complexity: Stable and Uncomplicated Clinical Decision Making: Low Complexity Significant Impairments: Neurological signs/symptoms Functional Limitations: difficulty with balance, difficulty with gait, and difficulty with stairs. Goals/Functional Outcomes: Patient will no longer have dizziness with walking or stairs in 6-12 week(s). Patient will be independent with home exercise program in 6-12 week(s). Barriers to Goal Achievement or Learning: none Prognosis: Good PLAN Planned Intervention/Education: Canalith repositioning procedure, Education, Electrical Stimulation, Neuromuscular Re-education, Therapeutic Activities, Therapeutic Exercise Frequency: Once only - No further therapy indicated see assessment Duration: Once only Discharge Plan: Patient will be discharged from therapy when goals are achieved or patient plateausin progress. Informed Consent: Patient and/or family in agreement with the care plan. Plan for Next Treatment: 1x eval and treat. No follow up at this time. The wet machine tender is completed by the therapist and the referring clinician's electronic signature certifies medical necessity for the plan above. documented in this encounter Plan of Treatment Not on file documented as of this encounter Visit Diagnoses Diagnosis Dizziness- Primary Dizziness and giddiness documented in this encounter
--- OUTSIDE RECORDS SUMMARY | 2024-04-13 10:59 | XMS_ITS | Clinical Summary ---
Author Organization [facility] Address [address] [place] [address] Care Team Providers Care Manager Assurance Name Role Phone Skylar Esparza MD Primary [...] (3 - 2022- season) 2023 10/30/2020, 10/09/2020 PHQ-2 (once per calendar year) 2023 INFLUENZA VACCINE (#1) 2024 0, 06/07/2018, 08/31/2017, Additional history exists DTAP/TDAP/TD IMMUNIZATION [...] Procedure Name Priority Date/Time Associated Diagnosis Comments SURGICAL PATHOLOGY EXAM Routine 03/18/2024 4:00 PM CDT Other specified noninflammatory disorders of vulva and perineum from Last 3 Months Results * Surgical Pathology Exam (03/18/2024 4:00 PM CDT) Case Report Surgical Pathology Report ? Case: [id number] ? Authorizing Provider: ??Larisa Contreras MD ?Collected: ? 03/18/2024 04:00 PM ? Ordering Location: ? [facility] ? Received: ?03/18/2024 09:31 PM ? [facility] ? Pathologist: ? Trace Diop, ? MD ? Specimen: ?Vulva ? 03/22/2024 1:57 PM [facility] Final Diagnosis Vulva, not otherwise specified, biopsy- Consistent with Myrmecia wart, no evidence of dysplasia or malignancy 03/22/2024 1:57 PM [facility] Clinical Information n/a 03/22/2024 1:57 PM [facility] Gross Description A(). Vulva, : The specimen is received in formalin, labeled with the patient's name, medical record number and other identifying information designated vulvar biopsy. It consists of 2 fragments of kang-white soft tissue measuring 0.2-0.3 cm in greatest dimension. The fragments are submitted entirely in formalin between sponges in 1 cassette. ALBINO Schultz(ASCP) 03/21/2024 12:56 PM 03/22/2024 1:57 PM [facility] Microscopic Description Sections of skin show an acanthotic papillary stratified squamous epithelium associated with marked hyper and parakeratosis. Individual cells exhibit abundant, prominent basophilic keratohyalin granules, which appear to focally coalesce into larger eosinophilic intracytoplasmic globules/inclusion s. The morphology is compatible with a minor Myrmecia wart. There is no evidence of dysplasia or malignancy. 03/22/2024 1:57 PM CDT LABORATORY Performing Labs The technical component of this testing was completed at [facility]. Stain controls for all stains resulted within this report have been reviewed and show appropriate reactivity. 03/22/2024 1:57 PM CDT LABORATORY Case Images 03/22/2024 1:57 PM CDT LABORATORY Biopsy VULVAL STRUCTURE / Unknown 03/18/2024 4:00 PM CDT 03/18/2024 9:31 PM CDT Larisa Contreras MD LAB - [facility] [address] [place] [address], [facility] [phone] from Last 3 Months Care Teams Manager Assurance Relationship Specialty Start Date End Date Skylar Esparza MD [facility] [address] [place] [address] PCP - General Internal Medicine 10/09/20
--- OUTSIDE RECORDS SUMMARY | 2024-04-13 10:59 | XMS_ITS | Referral Summary ---
Author Organization [facility] Address [address] [place] [address] Care Team Providers Care Cylinder Devalver Name Role Phone Elsewhere, Pcp Primary Care Provider Unavailabl e Source Comments Patient records contain information from all sites at [facility]. For routine questions regarding patient records, call [phone] during business hours, M-F 8:00 AM - 5:00 PM Central Time. Record requests for emergency care only can be directed to [phone] at any time.[facility] Encounters Date Type Department Care Team Description 01/18/2024 12:45 PM CDT Office Visit Department of Dermatology in [address] [phone] Karie Goodwin M.D. Nevi Multiple (Primary Dx); [...] How often do you attend chur or yazidi services? More than 4 times per year 06/16/2022 Do you belong to any clubs o r organizations such as adventist groups, unions, fraternal or athletic groups, or [...] and heating? Not hard at all 06/16/2022 [facility] [place] of Occupat ional Health - Occupational Stress [...] place to sleep or slept in a senior care (including now)? No 06/16/2022 Nutrition Answer Date [...] Comments Blood Pressure 121/80 10/10/2019 8:28 AM FITNESS TRAINER Pulse 69 10/10/2019 8:28 AM FITNESS TRAINER Temperature 36.9 ??C (98.4 ??F) 08/15/2019 9:54 AM CS T Respiratory Rate 14 08/01/2016 11:5 6 AM FITNESS TRAINER Oxygen Saturation - - Inhaled Oxygen Concentration - - Weight 90.1 kg (198 lb 10.2 oz) 10/10/2019 8:28 AM FITNESS TRAINER Height 165.5 cm (5' 5.16) 10/10/2019 8:28 AM CS T Body Mass Index 32.9 10/10/2019 8:28 AM FITNESS TRAINER Plan of Treatment Upcoming Encounters Date Type Department Care Team (Late st Contact Info) Description 07/25/2024 8:45 AM FITNESS TRAINER Office Visit Department of Dermatology in [address] [phone] Karie Goodwin M.D. [address] [place] [phone] Discharge Disposition: Home or Self Care Procedures Procedure Name Priority Date/Time Associated Diagnosis Comments THYROID FUNCTION CASCADE, S Routine 04/11/2019 3:46 PM CDT Pain Low Back Pain Hip Bilateral HCV RNA DETECT/QUANT Routine 12/11/2015 12:28 PM CDT HIV-1/-2 AG AND AB SCREEN Routine 12/11/2015 12:28 PM CDT from Last 3 Months or Most Recently Relevant to Health Maintenance Results * Thyroid Function [place] (04/11/2019 3:46 PM CDT) TSH, Sensitive 0.6 0.3 - 4.2 mIU/L 04/11/2019 7:40 PM CDT Blood (Blood, Venous) 04/11/2019 3:46 PM CDT 04/11/2019 7:00 PM CDT Nasir Kidd M.D. LAB BLOOD ADD-ON [facility] [address] * HIV-1/-2 Ag and Ab Screen (12/11/2015 12:28 PM CDT) [facility] HIV-1/-2 Antibody Negative Negative POWERCHART Comment: Negative result does not rule out HIV infection. If acute HIV infection is suspected in a high-risk individual, submit plasma specimen for HIV-1 RNA quantification test (HIVDQ) and/or HIV-2 DNA/RNA test (FHV2Q). Test Performed by: [place] [address] Lunchroom Attendant: Julian Clarke II, M.D., Ph.D. Blood 12/11/2015 12:2 8 PM CDT Oli Palencia Jr., M.D. LAB MICROBIOLOG Y - BLOOD ORDERABLES Performing Organization Address [facility] de Phone Number POWERCHART * HCV RNA Detect / Quant (12/11/2015 12:28 PM CDT) [facility] HCV RNA Detect/Quant, S Undetected Undetected INTUML POWERCHART Comment: Result in log IU/mL is Undetected. ADDITIONAL INFORMATION The quantification range of this assay is 15 to 100,000,000 IU/mL (1.18 log to 8.00 log IU/mL). Testing was performed by the CINDY AmpliPrep/CINDY TaqMan HCV Test, version 2.0 ([employer] Test Performed by: [place] [address] Lunchroom Attendant: Julian Clarke II, M.D., Ph.D. Blood 12/11/2015 12:2 8 PM CDT Oli Palencia Jr., M.D. LAB MICROBIOLOG Y - BLOOD ORDERABLES POWERCHART from Last 3 Months or Most Recently Relevant to Health Maintenance Care Teams Cylinder Devalver Relationship Specialty Start Date End Date Elsewhere, Pcp PCP - General Family Medicine 08/15/19
--- OUTSIDE RECORDS SUMMARY | 2024-04-13 10:59 | XMS_ITS | Referral Summary ---
Author Organization [facility] Address [address] [place] [address] Care Team Providers Care Casing Finisher And Stuffer Name Role Phone Skylar Esparza MD Primary [...] CDT Plan of Treatment Not on file Procedures Procedure Name Priority Date/Time Associated Diagnosis Comments SURGICAL PATHOLOGY EXAM Routine 03/18/2024 4:00 PM CDT Other specified noninflammatory disorders of vulva and perineum from Last 3 Months Results * Surgical Pathology Exam (03/18/2024 4:00 PM CDT) Case Report Surgical Pathology Report ? Case: [id number] ? Authorizing Provider: ??Larisa Contreras MD ?Collected: ? 03/18/2024 04:00 PM ? Ordering Location: ? [facility] ? Received: ?03/18/2024 09:31 PM ? [facility] ? Pathologist: ? Trace Diop, ? MD ? Specimen: ?Vulva ? 03/22/2024 1:57 PM [facility] Final Diagnosis Vulva, not otherwise specified, biopsy- Consistent with Myrmecia wart, no evidence of dysplasia or malignancy 03/22/2024 1:57 PM [facility] Clinical Information n/a 03/22/2024 1:57 PM [facility] Gross Description A(). Vulva, : The specimen is received in formalin, labeled with the patient's name, medical record number and other identifying information designated vulvar biopsy. It consists of 2 fragments of kang-white soft tissue measuring 0.2-0.3 cm in greatest dimension. The fragments are submitted entirely in formalin between sponges in 1 cassette. ALBINO Schultz(ASCP)CM 03/21/2024 12:56 PM 03/22/2024 1:57 PM CDT LABORATORY Microscopic Description Sections of skin show [...] component of this testing was completed at [facility]. Stain controls for all stains resulted within this report have been reviewed and show appropriate reactivity. 03/22/2024 1:57 PM CDT LABORATORY Case Images 03/22/2024 1:57 PM CDT LABORATORY Biopsy VULVAL STRUCTURE / Unknown 03/18/2024 4:00 PM CDT 03/18/2024 9:31 PM CDT Larisa Contreras MD LAB - [facility] [address] floor, [address] [place] [phone], [facility] [phone] from Last 3 Months Care Teams Casing Finisher And Stuffer Relationship Specialty Start Date End Date Skylar Esparza MD [facility] [address] [place] [address] PCP - General Internal Medicine 10/09/20
--- OUTSIDE RECORDS SUMMARY | 2024-04-13 10:59 | XMS_ITS | Clinical Summary ---
Author Organization [facility] Address [address] [place] [address] Care Team Providers Care Accordion Tuner Name Role Phone Elsewhere, Pcp Primary Care Provider Unavailabl e Source Comments Patient records contain information from all sites at [facility]. For routine questions regarding patient records, call [phone] during business hours, M-F 8:00 AM - 5:00 PM Central Time. Record requests for emergency care only can be directed to [phone] at any time.[facility] Allergies Active Allergy Reactions Criticality Noted Date [...] CDT Office Visit Department of Dermatology in [address] [phone] Karie Goodwin M.D. Nevi Multiple [...] & Sebaceous adenoma Alcohol abuse Maternal Grandfather Edelke Alzhei mers Diabetes Maternal Grandfather Abelardo Anxiety [...] How often do you attend chur or confucianist services? More than 4 times per year 06/16/2022 Do you belong to any clubs o r organizations such as zoroastrian groups, unions, fraternal or athletic groups, or [...] and heating? Not hard at all 06/16/2022 [facility] - Occupational Stress Questionnaire Answer Date [...] place to sleep or slept in a group home (including now)? No 06/16/2022 Nutrition Answer Date [...] Comments Blood Pressure 121/80 10/10/2019 8:28 AM VESSEL SLAGMAN Pulse 69 10/10/2019 8:28 AM VESSEL SLAGMAN Temperature 36.9 ??C (98.4 ??F) 08/15/2019 9:54 AM CS T Respiratory Rate 14 08/01/2016 11:5 6 AM VESSEL SLAGMAN Oxygen Saturation - - Inhaled Oxygen Concentration - - Weight 90.1 kg (198 lb 10.2 oz) 10/10/2019 8:28 AM VESSEL SLAGMAN Height 165.5 cm (5' 5.16) 10/10/2019 8:28 AM CS T Body Mass Index 32.9 10/10/2019 8:28 AM VESSEL SLAGMAN Plan of Treatment Upcoming Encounters Date Type Department Care Team (Late st Contact Info) Description 07/25/2024 8:45 AM VESSEL SLAGMAN Office Visit Department of Dermatology in [address] [phone] Karie Goodwin M.D. [address] [place] [phone] Discharge Disposition: Home or Self Care Health Maintenance Due Date Last Done Comments CT Colonography 1970 Cologuard 1970 FIT 1970 Fasting Glucose for Diabetes Screening 1970 Lipid (Cholesterol) Screening 1970 Mammogram 1970 Hepatitis B Vaccines (1 of 3 - 19+ 3-dose series) 1989 Thyroid Stimulating Hormone (TSH) test for thyroid function 04/11/2020 04/11/2019 Zoster Vaccines (1 of 2) 2020 COVID-19 Vaccine (3 - 2022-24 season) 2023 10/30/2020, 10/09/2020 Depression Screening (Annual PHQ-2) 09/21/2023 Influenza Vaccine (#1) 2024 , 08/06/2020, 06/07/2018, Additional history exists DTaP,Tdap,and Td Vaccines (3 - Td or [...] to Health Maintenance Results * Thyroid Function [place] (04/11/2019 3:46 PM CDT) TSH, Sensitive 0.6 0.3 - 4.2 mIU/L 04/11/2019 7:40 PM CDT Blood (Blood, Venous) 04/11/2019 3:46 PM CDT 04/11/2019 7:00 PM CDT Nasir Kidd M.D. LAB BLOOD ADD-ON [facility] [address] [place] [address], [facility] * HIV-1/-2 Ag and Ab Screen (12/11/2015 12:28 PM CDT) [facility] HIV-1/-2 Antibody Negative Negative POWERCHART Comment: Negative result does not rule out HIV infection. If acute HIV infection is suspected in a high-risk individual, submit plasma specimen for HIV-1 RNA quantification test (HIVDQ) and/or HIV-2 DNA/RNA test (FHV2Q). Test Performed by: [place] [address] Hunter Guide: Julian Clarke II, M.D., Ph.D. Blood 12/11/2015 12:2 8 PM CDT Oli Palencia Jr., M.D. LAB MICROBIOLOG Y - BLOOD ORDERABLES Performing Organization Address [facility] de Phone Number POWERCHART * HCV RNA Detect / Quant (12/11/2015 12:28 PM CDT) [facility] HCV RNA Detect/Quant, S Undetected Undetected INTUML POWERCHART Comment: Result in log IU/mL is Undetected. ADDITIONAL INFORMATION The quantification range of this assay is 15 to 100,000,000 IU/mL (1.18 log to 8.00 log IU/mL). Testing was performed by the CINDY AmpliPrep/CINDY TaqMan HCV Test, version 2.0 ([employer] Test Performed by: [place] [id number] Hunter Guide: Julian Clarke II, M.D., Ph.D. Blood 12/11/2015 12:2 8 PM CDT Oli Palencia Jr., M.D. LAB MICROBIOLOG Y - BLOOD ORDERABLES Performing Organization Address [facility] de Phone Number POWERCHART from Last 3 Months or Most Recently Relevant to Health Maintenance Care Teams Accordion Tuner Relationship Specialty Start Date End Date Elsewhere, Pcp PCP - General Family Medicine 08/15/19
--- OUTSIDE RECORDS SUMMARY | 2024-04-13 10:59 | XMS_ITS | Clinical Summary ---
Author Organization [facility] Address [place], [place] [address] Care Team Providers Care Gas Adjuster Name Role Phone Pcp, No Primary Care [...] 11/23/2008 Active cholecalciferol (VITAMIN D) 1,000 unit capsuleIndications:Unsp ecified hypothyroidism Take 2 capsules by mouth once daily. One cap daily 0 07/04/2010 Active pantoprazole (PROTONIX) 40 mg delayed-release tablet 2 02/21/2018 Active clonazePAM (KLONOPIN) 0.5 mg tablet Take 1 tablet by mouth. 08/31/2012 Active EPINEPHrine (EPIPEN) 0.3 mg/0.3 mL injection 0 01/18/2018 A ctive SYNTHROID 112 mcg tablet 0 12/22/2018 Active cetirizine (ZYRTEC) 10 mg tablet Take 10 mg by mouth once daily. BID Active SYNTHROID 125 mcg tablet TAKE 1 TABLET BY MOUTH 2 TIMES WEEKLY 04/18/2020 Active fluocinonide 0.05 TOPICAL (LIDEX) 0.05 % external solution Apply sparingly to involved areas on scalp twice daily for up to 1 week at a time 08/13/2020 Active Active Problems Problem Noted Date Diagnosed [...] Description 02/05/2024 8:40 AM CDT Office Visit [facility] [address] [place] [address] Fortunato Tapia MD Musculoskeletal Problem (RIGHT Hip/groin [...] 2 2 Date Outcome GA Total Labor Labor//3rd Weight Sex Type Anes PTL Isabella A1 A5 Name Clin 1994 3.37 kg (7 lb 7 oz) F Vag Living 1998 40w 0d M Vag Living Last Filed Vital Signs Vital Sign Reading Time Taken Comments Blood Pressure 105/75 02/05/2024 8:48 AM CDT Pulse 82 02/05/2024 8:48 AM CDT Temperature 37.1 ??C (98.7 ??F) 06/19/2011 10:14 AM C DT Respiratory Rate 16 09/02/2022 8:01 AM DOCUMENT RESTORER Oxygen Saturation 100% 02/05/2024 8:48 AM CDT Inhaled Oxygen Concentration - - Weight 80 kg (176 lb 6.4 oz) 02/05/2024 8:48 AM CDT Height 165.1 cm (5' 5) 10/27/2022 8:47 AM DOCUMENT RESTORER Body Mass Index 29.35 10/27/2022 8:47 AM DOCUMENT RESTORER Plan of Treatment Health Maintenance Due Date [...] history exists Influenza for age 50-64 05/22/2024 07/08/20, 08/06/2020, 08/06/2020, Additional history exists Tetanus booster 08/30/2028 08/30/2018, 05/22, 06/05/2009, Additional history exists Colonoscopy through age 75 01/14/203201/13, 01/13/2022, 10/08/2015, Additional history exists Tdap Completed 06/05/2009 Procedures Procedure Name Priority Date/Time Associated Diagnosis Comments COLONOSCOPY SCREENING Routine 01/13/2022 12:00 AM CDT Encounter for screening colonoscopy LIPID PANEL W REFLEX MEASURED LDL Routine 11/07/2010 8:36 AM DOCUMENT RESTORER HYPOTHYROIDISM ACQUIRED UNSPEC CONSUMER SALES REPRESENTATIVE THIN PREP PAP SCREEN IMAGED Routine 01/18/2008 3:26 PM CDT Screening Malignant Neoplasms Cervix XR MAMMO BILAT DIAG FFDM (IA) Timed 06/11/2006 3:07 PM CDT from Last 3 Months or Most Recently Relevant to Health Maintenance Results * COLONOSCOPY SCREENING (01/13/2022 12:00 AM CDT) Shaun Joseph MD GI PROCEDURE ORD * LIPID PANEL W REFLEX MEASURED LDL (11/07/2010 8:36 AM DOCUMENT RESTORER) CHOLESTEROL,TOTAL 169 110 - 199 mg/dL [facility] TRIGLYCERIDES 114 40 - 149 mg/dL [facility] HDL CHOLESTEROL 48 >40 mg/dL ABBO TT [facility] CHOL/HDL RATIO 3.52 <4.51 ABBOT T [facility] LDL CHOLESTEROL 98 <131 mg/dL [facility] PATIENT STATUS Fasting [facility] Blood specimen (specimen) BLOOD SPECIMEN / Unknown 11/07/2010 8:36 AM DOCUMENT RESTORER 11/07/2010 8:35 AM DOCUMENT RESTORER Karthik Mccann MD CHEMISTRY [facility] INTERNAL ZIP [address] [address] * CONSUMER SALES REPRESENTATIVE THIN PREP PAP SCREEN IMAGED (01/18/2008 3:26 PM CDT) CYTOLOGY ??CYTOPATHOLOGY REPORT ??[facility] ?? Status: Final Report ? [id number] ?? CLINICAL INFORMATION ?LMP ? : 01-11-08 ?Previous Pap Date ? : 12-11-06 ?Previous PAP Dx ? : Negative for intraepithelial lesion or ?malignancy. ?Previous [place]/bx date : None ?Previous Colposcopy/Bx: None ?Hormone Usage ? : None ?Menstrual Status ?: Regular Periods ?Appearance of Cervix ??: WNL ?[place]/Bx done today ?: No ?HPV Request ? [...] 01/18/08 ?? ACCESSIONED: 01/18/08 ?? SIGNED: 01/20/08 [facility] Cervical (Cervical) 01/18/2008 3:26 PM CDT 01/18/2008 3:25 PM CDT Larisa Contreras MD PATHOLOGY/CYTOLO GY Performing Organization Address City/State/[facility] Co de Phone Number [facility] INTERNAL ZIP [address] [address] * BC DX FFD NOHEMI TARA (06/11/2006 [...] 10:21 AM 12/03/2008 1:31 PM Care Teams Gas Adjuster Relationship Specialty Start Date End Date Pcp, No . PCP - General 05/29/20
--- OUTSIDE RECORDS SUMMARY | 2024-04-13 10:59 | XMS_ITS | Encounter Summary ---
Author Organization [facility] Address [address] [place] [address] Care Team Providers Care Distribution Field Technician Name Role Phone Elsewhere, Pcp Primary Care Provider Unavailabl e Reason for Referral * Outpatient (Routine) - Authorized Specialty Diagnoses / Procedures Referred By Geneva ventura Referred To Contact Dermatology Karie Goodwin M.D. [address] [place] [phone] [facility] Referral ID Status Reason Start Date Expiration Date V isits Requested Visits Authorized [id number] Authorized 01/18/2024 07/19/2025 1 1 Scheduling Instructions Recheck scalp pruritus, rosacea and a few nevi in 6 months Reason for Visit * Reason Comments Skin Check * Appointment Request (Routine) - Closed Specialty Diagnoses / Procedures Referred By Contac t Referred To Contact Dermatology Referral ID Status Reason Start Date Expiration Date Visits Re quested Visits Authorized [id number] Closed 09/10/2023 09/09/2024 1 1 Encounter Details Date Type Department Care Team (Late st Contact Info) Description 01/18/2024 12:45 PM CDT Office Visit Department of Dermatology in [address] [phone] Karie Goodwin M.D. [address] [place] [phone] Nevi Multiple (Primary Dx); Keratosis Seborrheic; Pruritus [...] How often do you attend chur or druze services? More than 4 times per year 06/16/2022 Do you belong to any clubs o r organizations such as anabaptist groups, unions, fraternal or athletic groups, or [...] and heating? Not hard at all 06/16/2022 [facility] [place] of Occupat ional Health - Occupational Stress [...] have received? Professional school degree (e.g., , EZEKIEL, DVM, FERNANDA) 04/11/2019 Sex and Gender Information [...] extremities. My scribe (Rhoda) served as a diamond sizer and grader for the entirety of the exam. Examination [...] excision in 2012 by an outside general surgeon, no recurrence [...] st Contact Info) Description 07/25/2024 8:45 AM TRACK SERVICE PERSON Office Visit Department of Dermatology in [address] [phone] Karie Goodwin M.D. [address] [place] [phone] Discharge Disposition: Home or Self Care Scheduled Referrals Name Type Priority Associated Diagnoses Order Schedule Dermatology office visit (clinic) Outpatient Referral Routine Expected: 07/19/2024 (Approximate), Expires: 04/18/2025 documented as of this encounter Visit Diagnoses Diagnosis Nevi Multiple- Primary Keratosis Seborrheic Pruritus Scalp Rosacea documented in this encounter Care Teams Distribution Field Technician Relationship Specialty Start Date End Date Elsewhere, Pcp PCP - General Family Medicine 08/15/19 documented as of this encounter
--- OUTSIDE RECORDS SUMMARY | 2024-04-13 10:59 | XMS_ITS | Encounter Summary ---
Author Organization [facility] Address [address] [place] [address] Care Team Providers Care Welder Fitter Gas Name Role Phone Elsewhere, Pcp Primary Care Provider Unavailabl e Encounter Details Date Type Department Care Team (Late st Contact Info) Description 11/10/2016 Historical Ophthalmology [facility] Oli Palencia Jr., M.D. [address] [place] [phone] Social History Tobacco Use Types Packs/Day [...] Mild rosacea CDM Reports - EYEGEN Id: [id number] Status: Fnl documented in this encounter Plan of Treatment Upcoming Encounters Date Type Department Care Team (Late st Contact Info) Description 07/25/2024 8:45 AM HIGH SCHOOL COMPUTER SCIENCE TEACHER Office Visit Department of Dermatology in [address] [phone] Karie Goodwin M.D. [address] [place] [phone] Discharge Disposition: Home or Self Care documented as of this encounter Visit Diagnoses Not on filedocumented in this encounter Additional Health Concerns Infection Onset Date Last Indicated Resolved Time COVID19 Pending 02/02/2020 02/02/2020 02/03/2020 3 :15 AM CDT COVID19 Pending 02/06/2020 02/06/2020 02/07/2020 5 :41 PM CDT COVID19 Pending 08/29/2020 08/29/2020 08/30/2020 1 :03 PM HIGH SCHOOL COMPUTER SCIENCE TEACHER documented as of this encounter Care Teams Welder Fitter Gas Relationship Specialty Start Date End Date Elsewhere, Pcp PCP - General Family Medicine 08/15/19 documented as of this encounter
== END 2024-04-12 14:24 | disposition home or self-care (01) ==
LOC: NFLDREF 04-13 10:55
PROVIDERS: PCP Internal Medicine; Referring Provider Internal Medicine; Visit Provider Internal Medicine
DX: E03.9 Hypothyroidism, unspecified (principal)
CPT/HCPCS: 84443

== ENCOUNTER 2024-11-28 08:08 | Outpatient (CLI) | payer OTHER, SELFPAY | END 2024-11-28 08:09 | disposition home or self-care (01) | PROVIDERS: PCP Internal Medicine; Visit Provider Internal Medicine | DX: E03.9 Hypothyroidism, unspecified (principal) | CPT/HCPCS: 84443 ==

== ENCOUNTER 2025-07-07 10:00 | Outpatient (CLI) | payer OTHER, SELFPAY | END 2025-07-07 10:01 | disposition home or self-care (01) | LOC: NFLDREF 07-08 17:39 | PROVIDERS: PCP Internal Medicine; Referring Provider Internal Medicine; Visit Provider Internal Medicine | DX: E03.2 Hypothyroidism due to medicaments and other exogenous substances (principal) | CPT/HCPCS: 84443 ==

== ENCOUNTER 2025-07-21 09:55 | Outpatient (CLI) | payer OTHER, SELFPAY ==
--- NOTE | 2025-07-21 10:15 | CRLHL7_ITS ---
For Patients: As a result of the Century Cures Act, medical imaging exams and procedure reports are released immediately into your electronic medical record. You may view this report before your referring provider. If you have questions, please contact your health care provider. INDICATION: BILATERAL SCREENING MAMMOGRAM, ASYMPTOMATIC 54 Y/O FEMALE COMPARISON: 02/19/2024, 01/26/2023, 10/14/2021 TECHNIQUE: Digital mammogram in CC and MLO projections including computer-aided detection (CAD) and tomosynthesis. BREAST COMPOSITION: The breasts are almost entirely fatty. FINDINGS: No suspicious findings. ASSESSMENT: BI-RADS 1 Negative RECOMMENDATION: Annual screening mammogram. A lay language report of this examination will be provided to the patient. Dictated by: Rahul Hall MD @ 07/21/2025 11:34:39 (Electronically Signed)
== END 2025-07-21 09:56 | disposition home or self-care (01) ==
LOC: MAMMO 09:56
PROVIDERS: PCP Internal Medicine; Visit Provider Internal Medicine
DX: Z12.31 Encounter for screening mammogram for malignant neoplasm of breast (principal)
CPT/HCPCS: 77063; 77067

== ENCOUNTER 2025-08-08 14:55 | Outpatient (CLI) | payer OTHER, SELFPAY | END 2025-08-08 14:56 | disposition home or self-care (01) | PROVIDERS: PCP Internal Medicine; Visit Provider Internal Medicine | DX: E11.9 Type 2 diabetes mellitus without complications (principal) | CPT/HCPCS: 86337 ==

== ENCOUNTER 2025-09-04 15:47 | Outpatient (CLI) | payer OTHER, SELFPAY | END 2025-09-04 15:48 | disposition home or self-care (01) | LOC: NFLDREF 15:48 | PROVIDERS: PCP Internal Medicine; Visit Provider Internal Medicine | DX: E13.9 Other specified diabetes mellitus without complications (principal) | CPT/HCPCS: 82043; 82570 ==